=== PATIENT | female | born 1935 | race Caucasian/White ===

== ENCOUNTER 2018-05-04 20:19 | Emergency (ER) | payer MEDICARE, OTHER, SELFPAY ==
[2018-05-04 20:25] VITALS: BP 145/65; PULSE 66; RESP 20; TEMP 36.4; O2SAT 97
--- NOTE | 2018-05-04 20:55 | DI.CT.S_ITS ---
PROCEDURE: CT FACIAL BONES WO CON INDICATIONS: trauma status post fall on aspirin TECHNIQUE: Noncontrast 2.5 mm thick axial images acquired from the mandible through the frontal sinuses, with coronal and sagittal reformatting. For radiation dose reduction, the following was used: automated exposure control, adjustment of mA and/or kV according to patient size. COMPARISON: [facility], CT, CT HEAD/BRAIN WO CON, 05/04/2018, 20:56. FINDINGS: Image quality: Excellent. Bones and teeth: There is a mildly displaced right nasal bone fracture and nondisplaced left nasal bone fracture. Orbital webb are intact. Sinus webb show no fracture or deformity. Visualized portions of the mandible demonstrate no fractures or subluxation. Zygomatic arches are intact. Pterygoid plates are intact. Visualized portions of the skull base and auditory canals are intact. Sinuses: Paranasal sinuses are aerated, without fluid levels, mucosal thickening, or mucoceles. Mastoid air cells are aerated. Soft tissues: No edema, masses, or fluid collections. No enlarged lymph nodes. No soft tissue lacerations or debris. Note is made of bilateral basal ganglia calcifications (please see separate head CT report). Vascular: Visualized vascular structures appear normal in the absence of contrast. Bony vascular foramina and canals are intact. IMPRESSION: 1. Bilateral nasal bone fractures. Dictated by: Tramaine Trujillo M.D. on 05/04/2018 at 21:40 Approved by: Tramaine Trujillo M.D. on 05/04/2018 at 21:43
--- NOTE | 2018-05-04 20:58 | DI.CT.S_ITS ---
PROCEDURE: CT HEAD/BRAIN WO CON INDICATIONS: trauma status post fall TECHNIQUE: Noncontrast 4.5 mm thick angled axial sections acquired from the foramen magnum to the vertex, with coronal and sagittal reformats. For radiation dose reduction, the following was used: automated exposure control, adjustment of mA and/or kV according to patient size. COMPARISON: [facility], CT, CT FACIAL BONES WO CON, 05/04/2018, 20:56. FINDINGS: Image quality: Excellent. CSF spaces: Basal cisterns are patent. No extra-axial fluid collections. The ventricles are symmetric in size and shape. Brain: There are foci of basal ganglia calcifications bilaterally. There is also calcification in the caudates, right greater than left. No intracranial bleeds or masses. There is cerebral volume loss for age, with resultant ventricular and sulcal prominence. There are periventricular and deep white matter chronic small vessel ischemic changes. There is intracranial internal carotid artery atherosclerosis. Skull and face: Calvarium bones appear intact, without suspicious lesions. There is mildly displaced right nasal bone fracture. Sinuses: Visualized sinuses and mastoids are clear. IMPRESSION: 1. No acute intracranial abnormalities. 2. Cerebral volume loss and chronic microvascular ischemic changes. 3. Bilateral basal ganglial and caudate calcifications, most likely dystrophic calcifications. Differential diagnoses include metabolic disorders, carbon monoxide poisoning and hyperparathyroidism. 4. Mildly displaced right nasal bone fracture. Dictated by: Tramaine Trujillo M.D. on 05/04/2018 at 21:35 Approved by: Tramaine Trujillo M.D. on 05/04/2018 at 21:40
[2018-05-04 21:30] VITALS: BP 149/74; PULSE 78; O2SAT 97
[2018-05-04 21:40] LABS: Add Manual Diff / Slide Review NO; Basophils Percent Auto 0.7 % (0-2); Eosinophils Percent Auto 4.5 % (2-4); Hematocrit 36.9 % (36-46); Hemoglobin 12.7 g/dL (12.0-16.0); Lymphocytes Percent Auto 15.2 % (25-40); Mean Corpuscular HGB Conc 34.5 % (30-36); Mean Corpuscular Hemoglobin 32.2 PG (26-34); Mean Corpuscular Volume 93.3 fL (80-100); Monocytes Percent Auto 7.9 % (3-14); Neutrophils Absolute Auto 7100 /uL (3000-5900); Neutrophils Percent Auto 71.7 % (50-75); Platelet Count 208 X10^3/uL (150-400); Red Blood Cell Count 3.95 X10^6/uL (4.0-5.2); Red Cell Distribution Width 14.3 % (11.6-14.8); White Blood Cell Count 9.9 X10^3/uL (4.5-11.0)
--- NOTE | 2018-05-04 21:44 | ED_ITS ---
HPI - Fall General Chief Complaint: Fall Stated Complaint: FACIAL INJURY S/P FALL Time Seen by Provider: 05/04/18 20:30 Source: patient and family Mode of arrival: ambulatory Limitations: no limitations History of Present Illness HPI Narrative: 82-year-old female with history of diabetes, breast cancer and gait disturbance presents with a mechanical fall which she had been bending over and fell forward, striking her face and head on the ground. She denies loss of consciousness nor nausea or vomiting. She admits to nose pain and swelling. She denies any vomiting. She denies any trouble with vision nor any numbness, tingling or weakness complaint: fall Onset (ago): minute(s) Fall from: standing Fall witnessed: yes, by family Place fall occurred: home Loss of consciousness: none Prolonged down time: no Symptoms prior to fall: none Context: tripped/slipped Location of injury: head and face Related Data Previous Rx's Medication Instructions Recorded atorvastatin 40 mg PO HS #90 tab 03/10/17 sertraline [Zoloft] 150 mg PO QDAY #270 tab 05/12/17 Allergies Allergy/AdvReac Type Severity Reaction Status Date / Time erythromycin base Allergy Mild Unverified 05/02/18 15:45 [ERYTHROMYCIN BASE] ciprofloxacin [CIPROFLOXACIN] Allergy Unknown Unverified 05/02/18 15:45 Sulfa (Sulfonamide Allergy Unknown Unverified 05/02/18 15:45 Antibiotics) [SULFA (SULFONAMIDE ANTIBIOTICS)] Review of Systems Review of Systems All systems reviewed & are unremarkable except as noted in HPI and below Constitutional Denies chills, Denies fever(s), Denies lethargy and Denies weakness Eyes Denies change in vision, Denies eye discharge, Denies irritation and Denies loss of vision ENT Ears, Nose, Mouth, and Throat: Denies change in voice, Reports nasal congestion , Reports nasal trauma, Denies neck pain and Denies sore throat Cardiovascular Denies chest pain, Denies irregular heart rhythm, Denies lightheadedness, Denies palpitations, Denies dyspnea, Denies dyspnea on exertion and Denies orthopnea Respiratory Denies cough, Denies dyspnea, Denies dyspnea on exertion and Denies wheezing Gastrointestinal Gastrointestinal: Denies abdominal pain, Denies change in bowel habits, Denies diarrhea, Denies nausea and Denies vomiting Genitourinary Denies hematuria, Denies flank pain, Denies urinary incontinence and Denies urinary urgency Musculoskeletal Denies neck pain Integumentary/Breasts Denies pruritus, Denies erythema, Denies rash and Denies wounds Neurologic Denies confusion, Denies loss of vision and Denies weakness Psychiatric Denies anxiety, Denies confusion, Denies depression, Denies homicidal ideation and Denies suicidal ideation Endocrine Denies palpitations Hematologic/Lymphatic Denies easy bruising Allergic/Immunologic Denies wheezing Exam Narrative Exam Narrative: Pleasant 82-year-old female in mild distress, complaining of nose pain. A and O x3, GCS 15 Initial Vital Signs Initial Vital Signs: Vital Signs Temperature 97.6 F 05/04/18 20:25 Pulse Rate 66 05/04/18 20:25 Respiratory Rate 20 05/04/18 20:25 Blood Pressure 145/65 H 05/04/18 20:25 Pulse Oximetry 97 05/04/18 20:25 Const General: cooperative and well developed Nutritional Appearance: well nourished Orientation: alert, awake, oriented x3 and not confused [facility] Head: normocephalic and atraumatic Ears: external ears normal and TM's normal bilaterally Nose: septum normal, No epistaxis, external nose abnormal (Swelling on the nasal bridge with tenderness, suspicious for nasal fracture) and No nasal discharge Face and sinus: sinuses nontender, face symmetric, no sinus tenderness and No dry mucous membranes Mouth: oral mucosae normal and moist mucous membranes Teeth and gingiva: dentition normal Throat: tonsils normal and uvula midline Eyes General: appearance normal, both eyes and all related structures Eyelids: eyelids normal Conjunctivae: conjunctivae normal Sclera: sclerae normal Pupils: PERRL EOM: EOM intact bilaterally Neck Neck: normal visual inspection, trachea midline, No lymphadenopathy, No midline deformity and No JVD Lymphatic: No lymphedema Chest Chest: normal inspection of the chest Resp Effort & Inspection: normal respiratory effort, able to speak in complete sentences, no respiratory distress and no use of accessory muscles Auscultation: clear to auscultation bilaterally, no rales, no rhonchi and no wheezes Cardio Rate: regular rate Rhythm: regular rhythm Heart Sounds: no click, no gallops, no murmurs and no rubs Pulses: normal peripheral pulses GI Inspection: non-distended Palpation: soft, no hepatosplenomegaly, No guarding, No pulsatile mass and No tender Auscultation: normal bowel sounds Back/Spine/Pelvis Back: No CVA tenderness Cervical Spine: cervical ROM normal and No pain with cervical ROM Thoracic/Lumbar Spine: thoracic and lumbar spine normal to inspection Skin General: no rashes or lesions noted, No jaundice and No petechiae Neuro General: alert, oriented x3, gait normal and no focal motor deficits Speech: speech normal Extrem General: full ROM, no clubbing, cyanosis or edema, no pedal edema and no calf tenderness Psych Appearance: well kempt Mental Status: mental status grossly normal Attitude: cooperative Thought Content: normal and suicidality Judgment: judgment good [facility] Surgical History History of gynecologic surgery (Resolved 1992) Status post breast lumpectomy (Resolved) Status post hysterectomy (Resolved 1986) Family History Father Atherosclerosis Mother No problems noted. Social History Smoking Status: Former smoker Course Orders Ordered: ED Orders 05/04/18 20:55 CT facial bones wo con Stat 05/04/18 20:58 CT head/brain wo con Stat 05/04/18 21:30 Basic Metabolic Panel Stat Complete Blood Count AUTO DIFF Stat 05/05/18 01:32 CT head/brain wo con Stat Vital Signs - 8 hr 05/04/18 21:30 05/05/18 01:42 05/05/18 02:24 Pulse Rate 78 67 80 Respiratory Rate 12 16 Blood Pressure [Left Arm] 139/64 H 131/61 H Blood Pressure [Right Arm] 149/74 H Pulse Oximetry 97 97 98 MDM - Fall Medical Records Attestation: I reviewed the patient's medical records. Lab Data Attestation: I reviewed the patient's lab results. Result diagrams: 05/04/18 21:30 05/04/18 21:30 Lab Results 05/04/18 05/04/18 Range/Units 21:30 21:30 WBC 9.9 (4.5-11.0) X10^3/uL RBC 3.95 L (4.0-5.2) X10^6/uL Hgb 12.7 (12.0-16.0) g/dL Hct 36.9 (36-46) % MCV 93.3 (80-100) fL MCH 32.2 (26-34) PG MCHC 34.5 (30-36) % RDW 14.3 (11.6-14.8) % Plt Count 208 (150-400) X10^3/uL Neut % (Auto) 71.7 (50-75) % Lymph % (Auto) 15.2 L (25-40) % [place] % (Auto) 7.9 (3-14) % Eos % (Auto) 4.5 H (2-4) % Baso % (Auto) 0.7 (0-2) % Neut # (Auto) 7100 H (7623-7601) /uL Sodium 141 (137-145) mmol/L Potassium 4.4 (3.4-5.1) mmol/L Chloride 103 (98-107) mmol/L Carbon Dioxide 24 (22-32) mmol/L BUN 27 H (7-17) mg/dL Creatinine 0.80 (0.52-1.04) mg/dL Estimated GFR > 60.0 (>60) mL/min BUN/Creatinine Ratio 33.8 H (6-22) Glucose 139 H (80-110) mg/dL Calcium 10.1 (8.4-10.2) mg/dL Imaging Data CT scan - head: Radiologist's impression: PROCEDURE: CT HEAD/BRAIN WO CON INDICATIONS: trauma status post fall TECHNIQUE: Noncontrast 4.5 mm thick angled axial sections acquired from the foramen magnum to the vertex, with coronal and sagittal reformats. For radiation dose reduction, the following was used: automated exposure control, adjustment of mA and/or kV according to patient size. COMPARISON: [facility], CT, CT FACIAL BONES WO CON, 05/04/2018, 20:56. FINDINGS: Image quality: Excellent. CSF spaces: Basal cisterns are patent. No extra-axial fluid collections. The ventricles are symmetric in size and shape. Brain: There are foci of basal ganglia calcifications bilaterally. There is also calcification in the caudates, right greater than left. No intracranial bleeds or masses. There is cerebral volume loss for age, with resultant ventricular and sulcal prominence. There are periventricular and deep white matter chronic small vessel ischemic changes. There is intracranial internal carotid artery atherosclerosis. Skull and face: Calvarium bones appear intact, without suspicious lesions. There is mildly displaced right nasal bone fracture. Sinuses: Visualized sinuses and mastoids are clear. IMPRESSION: 1. No acute intracranial abnormalities. 2. Cerebral volume loss and chronic microvascular ischemic changes. 3. Bilateral basal ganglial and caudate calcifications, most likely dystrophic calcifications. Differential diagnoses include metabolic disorders, carbon monoxide poisoning and hyperparathyroidism. 4. Mildly displaced right nasal bone fracture. Dictated by: Tramaine Trujillo M.D. on 05/04/2018 at 21:35 Approved by: Tramaine Trujillo M.D. on 05/04/2018 at 21:[address] No intracranial hemorrhage. No change from prior Discharge Plan Departure Patient Disposition: Home, Self-Care Clinical Impression: Abrasion of face, Closed fracture nasal bone Discharge Date/Time: 05/05/18 03:19 Interventions: ED Discharge Assessment Last Done: 05/05/18 03:18 Instructions: DI for Nose Fracture Activity Restrictions/Additional Instructions: *You have been diagnosed with [ nasal fracture and facial abrasion ] *What to do: * continue to take medications as directed *Follow up with your primary care provider in 2-3 days, call for an appointment. Let them know you were seen in the Emergency Department and that we ask that you be seen in follow up. For ongoing nasal problems beyond 1 week , consider following up with Dr. Guhtrie at [facility] ear nose and throat, his contact info has been include *Return to ER if you should have any new, worsening or concerning symptoms , such as [blurred vision, trouble with speech, numbness, tingling or weakness, other stroke-like symptoms, other bothersome findings ] Prescriptions: No Action atorvastatin 40 MG tablet 40 mg PO HS Qty: 90 RF: 3 sertraline [Zoloft] 50 MG tablet 150 mg PO QDAY Qty: 270 RF: 2 Referrals: Wes Guthrie MD [Physician] - Maximus Mcgarry MD [Primary Care Provider] -
[2018-05-04 21:49] LABS: BUN Creatinine Ratio 33.8 (6-22); Blood Urea Nitrogen 27 mg/dL (7-17); Calcium 10.1 mg/dL (8.4-10.2); Carbon Dioxide 24 mmol/L (22-32); Chloride 103 mmol/L (98-107); Estimated Glomerular Filt Rate > 60.0 mL/min (>60); Glucose 139 mg/dL (80-110); HEMOLYSIS 21 (0-50); Potassium 4.4 mmol/L (3.4-5.1); Sodium 141 mmol/L (137-145)
--- NOTE | 2018-05-05 01:32 | DI.CT.S_ITS ---
PROCEDURE: CT HEAD/BRAIN WO CON INDICATIONS: head injury, aspirin, trending findings TECHNIQUE: Noncontrast 4.5 mm thick angled axial sections acquired from the foramen magnum to the vertex, with coronal and sagittal reformats. For radiation dose reduction, the following was used: automated exposure control, adjustment of mA and/or kV according to patient size. COMPARISON: [facility], CT, CT HEAD/BRAIN WO CON, 05/04/2018, 20:56. FINDINGS: Image quality: Excellent. CSF spaces: Basal cisterns are patent. No extra-axial fluid collections. The ventricles are symmetric in size and shape. Brain: No intracranial bleeds or masses. Prominent bilateral basal ganglia calcifications There is cerebral volume loss for age, with resultant ventricular and sulcal prominence. There are periventricular and deep white matter chronic small vessel ischemic changes. There is intracranial internal carotid artery atherosclerosis. Skull and face: Calvarium and visualized facial bones appear intact, without suspicious lesions. Sinuses: Visualized sinuses and mastoids are clear. IMPRESSION: No acute intracranial abnormality. No interval change. Dictated by: Darren Bird M.D. on 05/05/2018 at 7:55 Approved by: Darren Bird M.D. on 05/05/2018 at 7:59
[2018-05-05 01:42] VITALS: BP 139/64; PULSE 67; RESP 12; O2SAT 97
--- NOTE | 2018-05-05 01:50 | PC.NURSE ---
repeat head ct
[2018-05-05 02:24] VITALS: BP 131/61; PULSE 80; RESP 16; O2SAT 98
== END 2018-05-05 03:19 | disposition home or self-care (01) ==
PROVIDERS: Emergency Provider Emergency Medicine; Family Provider Internal Medicine; PCP Internal Medicine
DX: S02.2XXA Fracture of nasal bones, initial encounter for closed fracture (principal); S00.81XA Abrasion of other part of head, initial encounter; W18.30XA Fall on same level, unspecified, initial encounter
CPT/HCPCS: 36591; 70450; 70486; 80048; 85025; 99283; 99284

== ENCOUNTER → 2018-06-08 09:02 | Outpatient (CLI) | payer MEDICARE, OTHER, SELFPAY ==
[2018-06-08 10:25] LABS: Add Manual Diff / Slide Review NO; Alanine Aminotransferase 31 IU/L (9-52); Albumin 4.6 g/dL (3.5-5.0); Albumin Globulin Ratio 1.5 (1.0-2.8); Alkaline Phosphatase 59 U/L (38-126); Aspartate Aminotransferase 26 IU/L (14-36); BUN Creatinine Ratio 28.3 (6-22); Basophils Percent Auto 0.8 % (0-2); Bilirubin Total 0.4 mg/dL (0.2-1.3); Blood Urea Nitrogen 17 mg/dL (7-17); Calcium 9.3 mg/dL (8.4-10.2); Carbon Dioxide 29 mmol/L (22-32); Chloride 103 mmol/L (98-107); Cholesterol 310 mg/dL (140-199); Eosinophils Percent Auto 6.6 % (2-4); Estimated Glomerular Filt Rate > 60.0 mL/min (>60); Globulin 3.1 g/dL (1.7-4.1); Glucose 186 mg/dL (80-110); HDL Cholesterol 45 mg/dL (40-60); HEMOLYSIS 18 (0-50); Hemoglobin 13.1 g/dL (12.0-16.0); LDL Cholesterol Calculated 216 mg/dL (<100); Lymphocytes Percent Auto 24.6 % (25-40); Mean Corpuscular HGB Conc 34.5 % (30-36); Mean Corpuscular Volume 92.8 fL (80-100); Monocytes Percent Auto 8.9 % (3-14); Neutrophils Absolute Auto 4200 /uL (3000-5900); Neutrophils Percent Auto 59.1 % (50-75); Platelet Count 193 X10^3/uL (150-400); Potassium 4.2 mmol/L (3.4-5.1); Red Cell Distribution Width 14.3 % (11.6-14.8); Sodium 141 mmol/L (137-145); Total Protein 7.7 g/dL (6.3-8.2); Triglycerides 246 mg/dL (35-150); White Blood Cell Count 7.1 X10^3/uL (4.5-11.0)
[2018-06-08 11:26] LABS: Creatinine Urine Random 80.3 mg/dL
[2018-06-08 11:31] LABS: Microalbumi Creatinin Ratio Ur 12.4 ug/mg CR (<30)
[2018-06-08 16:00] LABS: Thyroid Stimulating Hormone 4.46 uIU/mL (0.47-4.68)
== END ==
PROVIDERS: PCP Internal Medicine; Visit Provider Internal Medicine
DX: E11.9 Type 2 diabetes mellitus without complications (principal); E78.5 Hyperlipidemia, unspecified; R53.81 Other malaise; R53.83 Other fatigue
CPT/HCPCS: 36415; 80053; 80061; 82043; 82570; 83036; 84439; 84443; 85025

== ENCOUNTER 2019-03-08 20:18 | Emergency (ER) | payer MEDICARE, OTHER, SELFPAY ==
[2019-03-08 20:25] VITALS: BP 153/66; PULSE 61; RESP 16; TEMP 36; O2SAT 98
--- NOTE | 2019-03-08 20:43 | ED_ITS ---
HPI - Chest Pain General Chief Complaint: Chest Pain Stated Complaint: RIB PAIN, VOMITING Time Seen by Provider: 03/08/19 20:42 Source: patient Mode of arrival: ambulatory Limitations: no limitations History of Present Illness HPI narrative: The patient complains of right chest wall pain. This morning she dropped a vitamin, she bent over to pickler helper the vitamin. She tells me she had to stretch a long wait grabbed the vitamin. She injured her right chest. She has pain in the right lower, lateral chest wall. She has pain with inspiration. She took a Vicodin, she now has nausea and vomiting. She has no left chest pain. She has pain with inspiration, but not to dyspnea. There was no fall or blunt trauma. She has no hemoptysis. Related Data Home Medications Medication Instructions Recorded Confirmed celecoxib 200 mg capsule 200 mg PO DAILY 05/09/18 03/01/19 metformin 850 mg tablet 850 mg PO BID 05/09/18 03/01/19 Resmed Airsense 10 CPAP #1 ea 03/01/19 03/01/19 Previous Rx's Medication Instructions Recorded sertraline [Zoloft] 150 mg PO QDAY #270 tab 08/15/18 atorvastatin 40 mg tablet 40 mg PO HS #90 tab 11/14/18 tramadol 50 mg PO Q6H PRN #20 tab 03/08/19 Allergies Allergy/AdvReac Type Severity Reaction Status Date / Time erythromycin base Allergy Mild Verified 08/01/18 15:20 [ERYTHROMYCIN BASE] ciprofloxacin [CIPROFLOXACIN] Allergy Unknown Verified 08/01/18 15:20 Sulfa (Sulfonamide Allergy Unknown Verified 08/01/18 15:20 Antibiotics) [SULFA (SULFONAMIDE ANTIBIOTICS)] Review of Systems Review of Systems ROS Unobtainable: All systems reviewed & are unremarkable except as noted in HPI and below ENT Ears, Nose, Mouth, and Throat: Denies epistaxis, Denies neck pain and Denies sore throat Cardiovascular Reports chest pain (Right costal margin pain), Denies irregular heart rhythm, Denies lightheadedness, Denies palpitations, Denies dyspnea, Denies dyspnea on exertion and Denies orthopnea Respiratory Denies cough, Denies dyspnea, Denies dyspnea on exertion and Denies wheezing Gastrointestinal Gastrointestinal: Reports abdominal pain (Right rib margin), Denies change in bowel habits, Denies diarrhea, Denies nausea and Denies vomiting Musculoskeletal Denies back pain, Denies neck pain and Reports other (No extremity pain or swelling) Integumentary/Breasts Denies pruritus, Denies erythema, Denies rash and Denies wounds Endocrine Denies palpitations Allergic/Immunologic Denies wheezing [facility] Medical History Obstructive sleep apnea of adult (Chronic) Controlled type 2 diabetes mellitus without complication (Chronic 2012) Hyperlipidemia (Chronic 06/04/14) History of kidney stones (Inactive) Depression (Chronic 2004) Scoliosis (Chronic 193) Osteoporosis (Chronic) Malignant neoplasm of breast (Resolved 2010) History of fracture of humerus (Inactive 03/11/17) Abnormal gait (Chronic 03/11/17) Impairment of balance (Chronic 03/11/17) Ankle pain (Resolved 2011) Fractures (Resolved 2004) Kidney stones (Resolved 1994) Urinary incontinence (Inactive 2011) Surgical History History of gynecologic surgery (Resolved 1992) Status post breast lumpectomy (Resolved) Status post hysterectomy (Resolved 1986) Family History Father Atherosclerosis Mother No problems noted. Social History (Updated 03/05/19 @ 14:47 by KATERIN Mendez) marital status: details: loi Schaeffer household members: spouse lives independently: Yes caregiver/support person: No housing: house Smoking Status: Former smoker alcohol intake: current substance use type: does not use Family History Father Atherosclerosis Mother No problems noted. Social History marital status: details: loi Schaeffer household members: spouse lives independently: Yes caregiver/support person: No housing: house Smoking Status: Former smoker alcohol intake: current substance use type: does not use Exam Initial Vital Signs Initial Vital Signs: Vital Signs Temperature 96.8 F L 03/08/19 20:25 Pulse Rate 61 03/08/19 20:25 Respiratory Rate 16 03/08/19 20:25 Blood Pressure 153/66 H 03/08/19 20:25 Pulse Oximetry 98 03/08/19 20:25 Const General: cooperative and well developed Nutritional Appearance: well nourished Orientation: alert, awake and oriented x3 [facility] Head: normocephalic and atraumatic Nose: external nose normal Face and sinus: face symmetric Mouth: moist mucous membranes Throat: tonsils normal and uvula midline Eyes General: appearance normal, both eyes and all related structures Eyelids: eyelids normal Conjunctivae: conjunctivae normal Sclera: sclerae normal Pupils: PERRL EOM: EOM intact bilaterally Neck Neck: normal visual inspection, trachea midline, No lymphadenopathy, No midline deformity and No JVD Chest Other: Tenderness in the right costal margin. No crepitus, no palpable defects. Resp Effort & Inspection: normal respiratory effort, able to speak in complete sentences, no respiratory distress and no use of accessory muscles Auscultation: clear to auscultation bilaterally, no rales, no rhonchi and no wheezes Cardio Rate: regular rate Rhythm: regular rhythm Heart Sounds: S1 normal, S2 normal, no click, no gallops, no murmurs and no rubs Pulses: normal peripheral pulses GI Palpation: No guarding, No hepatomegaly and tender (Along the right rib margin. No guarding.) Back/Spine/Pelvis Back: No back tenderness and No crepitance Skin General: no rashes or lesions noted and No petechiae Neuro General: alert, oriented x3, gait normal and no focal motor deficits Speech: speech normal Extrem General: full ROM, no pedal edema and no calf tenderness Psych Appearance: well kempt Mental Status: mental status grossly normal Attitude: cooperative Thought Content: normal and suicidality Judgment: judgment good Course Course Narrative: Exam is consistent with a right chest wall strain. She is particularly tender along the right costal margin. Chest x-ray and rib x-rays are normal. She has done well with the Dilaudid injection, feeling much better. She will be discharged on tramadol. Orders Ordered: ED Orders 03/08/19 20:55 XR ribs RT min 3V w CXR1V Stat Discontinued Medications Hydromorphone HCl (Dilaudid) 1 mg IM NOW ONE Stop: 03/08/19 20:56 Last Admin: 03/08/19 21:09 Dose: 1 mg Ondansetron HCl (Zofran Odt) 4 mg SL NOW ONE Stop: 03/08/19 20:56 Last Admin: 03/08/19 21:09 Dose: 4 mg Tramadol HCl (Ultram 50mg Prepack) 1 bottle MISC SEEINSTR ONE Stop: 03/08/19 22:45 Last Admin: 03/08/19 22:54 Dose: 1 bottle Vital Signs - 8 hr 03/08/19 20:25 Temperature 96.8 F L Pulse Rate 61 Respiratory Rate 16 Blood Pressure 153/66 H Pulse Oximetry 98 MDM - Chest Pain Imaging Data Right rib/CXR:: Radiologist's impression: [address] [address] XRay Report Signed Patient: Munira Farris EMR#: [id number] : 6Acct:[id number] Age/Sex: 83 / FDate of Service: 03/08/19 Loc: ED Accession Number: [id number] Procedure: XR ribs RT min 3V w CXR1V Ordering Provider: Murphy Arroyo MD PROCEDURE: XR RIBS RT MIN 3V W CXR 1V INDICATIONS: Injury earlier today. Right rib pain TECHNIQUE: 2 views of the right ribs were acquired, along with a single view chest. COMPARISON: [facility], , CHEST 2 VIEW, 03/12/2016, 9:48. FINDINGS: Surgical changes and devices: There are small surgical clips in the chest wall bilaterally. Postsurgical changes are also partially visualized within the proximal left humerus. Bones and chest wall: No displaced rib fracture identified. No suspicious bony lesions. Overlying soft tissues appear unremarkable. Lungs and pleura: No pleural effusions or pneumothorax. Lungs appear clear. Mediastinum: Mediastinal contours appear normal. Heart size is normal. IMPRESSION: 1. No displaced rib fracture identified. Dictated by: Jeff Bah M.D. on 03/08/2019 at 21:46 Approved by: Jeff Bah M.D. on 03/08/2019 at 21:48 Discharge Plan Departure Patient Disposition: Home Clinical Impression: Strain of chest wall Qualifiers: Encounter type: initial encounter Qualified Code(s): S29.011A - Strain of muscle and tendon of front wall of thorax, initial encounter Instructions: DI for Muscle Strain Activity Restrictions/Additional Instructions: Tylenol 2 tabs every 4 hours as needed for pain. Tramadol 1 tab every 6 hours as needed for added pain control. Follow-up with her doctor in 2 weeks if you are not improving. Return to the ER if necessary. Prescriptions: New tramadol 50 mg tablet 50 mg PO Q6H PRN (Reason: pain) Qty: 20 RF: 0 No Action sertraline [Zoloft] 50 mg tablet 150 mg PO QDAY Qty: 270 RF: 3 atorvastatin 40 mg tablet 40 mg PO HS Qty: 90 RF: 1 celecoxib [Celebrex] 200 mg capsule 200 mg PO DAILY RF: 0 metformin 850 mg tablet 850 mg PO BID RF: 0 Resmed Airsense 10 CPAP Qty: 1 RF: 0 Referrals: Maximus Mcgarry MD [Primary Care Provider] -
--- NOTE | 2019-03-08 20:55 | DI.RAD.S_ITS ---
PROCEDURE: XR RIBS RT MIN 3V W CXR 1V INDICATIONS: Injury earlier today. Right rib pain TECHNIQUE: 2 views of the right ribs were acquired, along with a single view chest. COMPARISON: [facility], , CHEST 2 VIEW, 03/12/2016, 9:48. FINDINGS: Surgical changes and devices: There are small surgical clips in the chest wall bilaterally. Postsurgical changes are also partially visualized within the proximal left humerus. Bones and chest wall: No displaced rib fracture identified. No suspicious bony lesions. Overlying soft tissues appear unremarkable. Lungs and pleura: No pleural effusions or pneumothorax. Lungs appear clear. Mediastinum: Mediastinal contours appear normal. Heart size is normal. IMPRESSION: 1. No displaced rib fracture identified. Dictated by: Jeff Bah M.D. on 03/08/2019 at 21:46 Approved by: Jeff Bah M.D. on 03/08/2019 at 21:48
[2019-03-08] MEDS: ONDANSETRON 4 MG ODT SL (21:09)
[2019-03-08] MEDS: HYDROMORPHONE 1 MG INJ IM (21:09)
[2019-03-08] MEDS: TRAMADOL 50 MG PREPACK 1 BOTTLE MISC (22:54)
[2019-03-08 23:04] VITALS: BP 102/73; PULSE 82; RESP 16; TEMP 36.5; O2SAT 95
--- NOTE | 2019-03-08 23:05 | ED.CHESTPAIN ---
HPI - Chest Pain General Chief Complaint: Chest Pain Stated Complaint: RIB PAIN, VOMITING Time Seen by Provider: 03/08/19 20:42 Source: patient Mode of arrival: ambulatory Limitations: no limitations Related Data Home Medications Medication Instructions Recorded Confirmed celecoxib 200 mg capsule 200 mg PO DAILY 05/09/18 03/01/19 metformin 850 mg tablet 850 mg PO BID 05/09/18 03/01/19 Resmed Airsense 10 CPAP #1 ea 03/01/19 03/01/19 Previous Rx's Medication Instructions Recorded sertraline [Zoloft] 150 mg PO QDAY #270 tab 08/15/18 atorvastatin 40 mg tablet 40 mg PO HS #90 tab 11/14/18 tramadol 50 mg PO Q6H PRN #20 tab 03/08/19 Allergies Allergy/AdvReac Type Severity Reaction Status Date / Time erythromycin base Allergy Mild Verified 08/01/18 15:20 [ERYTHROMYCIN BASE] ciprofloxacin [CIPROFLOXACIN] Allergy Unknown Verified 08/01/18 15:20 Sulfa (Sulfonamide Allergy Unknown Verified 08/01/18 15:20 Antibiotics) [SULFA (SULFONAMIDE ANTIBIOTICS)] [facility] Medical History Obstructive sleep apnea of adult (Chronic) Controlled type 2 diabetes mellitus without complication (Chronic 2012) Hyperlipidemia (Chronic 06/04/14) History of kidney stones (Inactive) Depression (Chronic 2004) Scoliosis (Chronic 193) Osteoporosis (Chronic) Malignant neoplasm of breast (Resolved 2010) History of fracture of humerus (Inactive 03/11/17) Abnormal gait (Chronic 03/11/17) Impairment of balance (Chronic 03/11/17) Ankle pain (Resolved 2011) Fractures (Resolved 2004) Kidney stones (Resolved 1994) Urinary incontinence (Inactive 2011) Surgical History History of gynecologic surgery (Resolved 1992) Status post breast lumpectomy (Resolved) Status post hysterectomy (Resolved 1986) Family History Father Atherosclerosis Mother No problems noted. Social History (Updated 03/05/19 @ 14:47 by KATERIN Mendez) marital status: details: loi Schaeffer household members: spouse lives independently: Yes caregiver/support person: No housing: house Smoking Status: Former smoker alcohol intake: current substance use type: does not use Family History Father Atherosclerosis Mother No problems noted. Social History marital status: details: loi Schaeffer household members: spouse lives independently: Yes caregiver/support person: No housing: house Smoking Status: Former smoker alcohol intake: current substance use type: does not use Exam Initial Vital Signs Initial Vital Signs: Vital Signs Temperature 96.8 F L 03/08/19 20:25 Pulse Rate 61 03/08/19 20:25 Respiratory Rate 16 03/08/19 20:25 Blood Pressure 153/66 H 03/08/19 20:25 Pulse Oximetry 98 03/08/19 20:25 Course Orders Ordered: ED Orders 03/08/19 20:55 XR ribs RT min 3V w CXR1V Stat Discontinued Medications Hydromorphone HCl (Dilaudid) 1 mg IM NOW ONE Stop: 03/08/19 20:56 Last Admin: 03/08/19 21:09 Dose: 1 mg Ondansetron HCl (Zofran Odt) 4 mg SL NOW ONE Stop: 03/08/19 20:56 Last Admin: 03/08/19 21:09 Dose: 4 mg Tramadol HCl (Ultram 50mg Prepack) 1 bottle MISC SEEINSTR ONE Stop: 03/08/19 22:45 Last Admin: 03/08/19 22:54 Dose: 1 bottle Vital Signs - 8 hr 03/08/19 20:25 Temperature 96.8 F L Pulse Rate 61 Respiratory Rate 16 Blood Pressure 153/66 H Pulse Oximetry 98 Discharge Plan Departure Patient Disposition: Home Clinical Impression: Strain of chest wall Instructions: DI for Muscle Strain Activity Restrictions/Additional Instructions: Tylenol 2 tabs every 4 hours as needed for pain. Tramadol 1 tab every 6 hours as needed for added pain control. Follow-up with her doctor in 2 weeks if you are not improving. Return to the ER if necessary. Prescriptions: New tramadol 50 mg tablet 50 mg PO Q6H PRN (Reason: pain) Qty: 20 RF: 0 No Action sertraline [Zoloft] 50 mg tablet 150 mg PO QDAY Qty: 270 RF: 3 atorvastatin 40 mg tablet 40 mg PO HS Qty: 90 RF: 1 celecoxib [Celebrex] 200 mg capsule 200 mg PO DAILY RF: 0 metformin 850 mg tablet 850 mg PO BID RF: 0 Resmed Airsense 10 CPAP Qty: 1 RF: 0 Referrals: Maximus Mcgarry MD [Primary Care Provider] -
== END 2019-03-08 23:12 | disposition home or self-care (01) ==
PROVIDERS: Emergency Provider Emergency Medicine; Family Provider Internal Medicine; PCP Internal Medicine
DX: S29.011A Strain of muscle and tendon of front wall of thorax, initial encounter (principal)
CPT/HCPCS: 71101; 96372; 99282; 99283; J1170

== ENCOUNTER → 2019-05-18 10:16 | Outpatient (CLI) | payer MEDICARE, OTHER, SELFPAY ==
[2019-05-18 11:17] LABS: BUN Creatinine Ratio 36.7 (6-22); Blood Urea Nitrogen 22 mg/dL (7-17); Calcium 9.8 mg/dL (8.4-10.2); Carbon Dioxide 27 mmol/L (22-32); Chloride 104 mmol/L (98-107); Estimated Glomerular Filt Rate > 60.0 mL/min (>60); Glucose 177 mg/dL (80-110); HEMOLYSIS < 15 (0-50); Potassium 4.8 mmol/L (3.4-5.1); Sodium 141 mmol/L (137-145)
[2019-05-18 14:20] LABS: Hemoglobin A1C% w Est Avg Glu 7.1 % (4.0-6.0)
== END ==
PROVIDERS: Family Provider Internal Medicine; PCP Internal Medicine; Visit Provider Internal Medicine
DX: E11.65 Type 2 diabetes mellitus with hyperglycemia (principal)
CPT/HCPCS: 36415; 80048; 83036

== ENCOUNTER → 2019-05-24 11:01 | Outpatient (CLI) | payer MEDICARE, OTHER, SELFPAY ==
--- NOTE | 2019-05-24 11:02 | DI.US.S_ITS ---
PROCEDURE: US PERIPH VENOUS LOW EXTREM BI INDICATIONS: EDEMA TECHNIQUE: Real-time imaging, as well as color and pulse Doppler interrogation, were performed of the deep veins of both legs from the inguinal ligament to the popliteal fossa. COMPARISON: None. FINDINGS: Right: The common femoral, femoral and popliteal veins are normally compressible, and free of intraluminal thrombus. Color and pulse Doppler demonstrate normal phasic intravascular flow. There is normal augmentation response to distal compression maneuver. Left: The common femoral, femoral and popliteal veins are normally compressible, and free of intraluminal thrombus. Color and pulse Doppler demonstrate normal phasic intravascular flow. There is normal augmentation response to distal compression maneuver. IMPRESSION: Negative for deep venous thrombosis. Dictated by: Олег Deshpande M.D. on 05/24/2019 at 11:01 Approved by: Олег Deshpande M.D. on 05/24/2019 at 11:02
== END ==
PROVIDERS: Family Provider Internal Medicine; PCP Internal Medicine; Visit Provider Nurse Practitioner
DX: R60.0 Localized edema (principal)
CPT/HCPCS: 93970

== ENCOUNTER → 2019-05-28 13:04 | Outpatient (CLI) | payer MEDICARE, OTHER, SELFPAY | PROVIDERS: Family Provider Internal Medicine; PCP Internal Medicine; Visit Provider Podiatrist Primary Podiatric Medicine | DX: I87.312 Chronic venous hypertension (idiopathic) with ulcer of left lower extremity (principal); L97.321 Non-pressure chronic ulcer of left ankle limited to breakdown of skin; R60.0 Localized edema | CPT/HCPCS: 29580; 99203; 99213 ==

== ENCOUNTER → 2019-05-30 15:49 | Outpatient (CLI) | payer MEDICARE, OTHER, SELFPAY | PROVIDERS: Family Provider Internal Medicine; PCP Internal Medicine; Visit Provider Family Medicine | DX: R60.0 Localized edema (principal) | CPT/HCPCS: 29581 ==

== ENCOUNTER → 2019-06-04 14:18 | Outpatient (CLI) | payer MEDICARE, OTHER, SELFPAY | PROVIDERS: Family Provider Internal Medicine; PCP Internal Medicine; Visit Provider Podiatrist Primary Podiatric Medicine | DX: Z48.817 Encounter for surgical aftercare following surgery on the skin and subcutaneous tissue (principal) | CPT/HCPCS: 99212; 99213 ==

== ENCOUNTER → 2019-06-12 17:33 | Outpatient (CLI) | payer MEDICARE, OTHER, SELFPAY ==
[2019-06-12 18:08] LABS: Appearance Urine UA CLOUDY; Bilirubin Urine UA NEGATIVE (NEGATIVE); Color Urine UA YELLOW; Glucose Urine UA NEGATIVE (Negative); Ketones Urine UA NEGATIVE (NEGATIVE); Leukocyte Esterase Urine UA 2+ (NEGATIVE); Nitrite Urine UA POSITIVE (Negative); Occult Blood Urine UA 1+ (Negative); Protein Urine UA 1+ (Negative); Urobilinogen Urine UA 0.2 E.U./dL (0.2)
[2019-06-12 18:22] LABS: RBC Urine 1-5/HPF (0-5/HPF); Squamous Epithelial Cell Urine 0-1 /HPF (0-5/HPF); WBC Urine >100/HPF (0-5/HPF)
[2019-06-12 18:23] LABS: Amorphous Sediment Urine 1+; Bacteria Urine Many (>30); Culture Indicated Urine Specimen Cultured; Mucus Urine 2+ (Negative)
== END ==
PROVIDERS: PCP Internal Medicine; Visit Provider Internal Medicine
DX: R39.9 Unspecified symptoms and signs involving the genitourinary system (principal)
CPT/HCPCS: 81001; 87077; 87086; 87186

== ENCOUNTER → 2019-07-02 09:17 | Outpatient (CLI) | payer MEDICARE, OTHER, SELFPAY | PROVIDERS: PCP Internal Medicine; Visit Provider Podiatrist Primary Podiatric Medicine | DX: I87.312 Chronic venous hypertension (idiopathic) with ulcer of left lower extremity (principal); I87.393 Chronic venous hypertension (idiopathic) with other complications of bilateral lower extremity | CPT/HCPCS: 99213 ==

== ENCOUNTER → 2019-07-20 12:04 | Outpatient (CLI) | payer MEDICARE, OTHER, SELFPAY ==
[2019-07-20 13:01] LABS: BUN Creatinine Ratio 28.3 (6-22); Blood Urea Nitrogen 17 mg/dL (7-17); Calcium 9.8 mg/dL (8.4-10.2); Carbon Dioxide 27 mmol/L (22-32); Chloride 101 mmol/L (98-107); Estimated Glomerular Filt Rate > 60.0 mL/min (>60); Glucose 165 mg/dL (80-110); HEMOLYSIS < 15 (0-50); Potassium 4.1 mmol/L (3.4-5.1); Sodium 139 mmol/L (137-145)
== END ==
PROVIDERS: PCP Internal Medicine; Visit Provider Internal Medicine
DX: I87.2 Venous insufficiency (chronic) (peripheral) (principal); R60.0 Localized edema
CPT/HCPCS: 36415; 80048; 83735

== ENCOUNTER → 2019-08-06 17:31 | Outpatient (CLI) | payer MEDICARE, OTHER, SELFPAY ==
[2019-08-06 18:01] LABS: Appearance Urine UA CLOUDY; Bilirubin Urine UA NEGATIVE (NEGATIVE); Color Urine UA YELLOW; Glucose Urine UA 1+ g/dL (Negative); Ketones Urine UA NEGATIVE (NEGATIVE); Leukocyte Esterase Urine UA 2+ (NEGATIVE); Nitrite Urine UA NEGATIVE (Negative); Occult Blood Urine UA TRACE-LYSED (Negative); Protein Urine UA NEGATIVE (Negative); Urobilinogen Urine UA 0.2 E.U./dL (0.2)
[2019-08-06 18:41] LABS: pH Urine UA 5.5 (4.5-8.0)
[2019-08-06 18:42] LABS: Bacteria Urine Few (2-10); Culture Indicated Urine Specimen Cultured; RBC Urine 1-5/HPF (0-5/HPF); Squamous Epithelial Cell Urine 0-1 /HPF (0-5/HPF); WBC Urine 30-100/HPF (0-5/HPF)
== END ==
PROVIDERS: PCP Internal Medicine; Visit Provider Internal Medicine
DX: R39.89 Other symptoms and signs involving the genitourinary system (principal)
CPT/HCPCS: 81001; 87086

== ENCOUNTER 2022-07-22 13:49 | Emergency (ER) | payer MEDICARE, OTHER, SELFPAY ==
[2022-07-22 14:11] VITALS: BP 143/65; PULSE 88; RESP 20; TEMP 37.7; O2SAT 95
--- NOTE | 2022-07-22 14:26 | DI.RAD.S_ITS ---
PROCEDURE: XR CHEST 1V INDICATIONS: cough TECHNIQUE: One view of the chest was acquired. COMPARISON: [facility], , CHEST 2 VIEW, 03/12/2016, 9:48. FINDINGS: Surgical changes and devices: Bilateral axillary clips Lungs and pleura: Lungs are clear. No pleural effusions or pneumothorax. Mediastinum: Mediastinal contours appear normal. Heart size is normal. Bones and chest wall: No suspicious bony lesions. Overlying soft tissues appear unremarkable. IMPRESSION: No evidence acute pulmonary process. Dictated by: Gregor Mccain M.D. on 07/22/2022 at 14:58 Approved by: Gregor Mccain M.D. on 07/22/2022 at 15:02
--- NOTE | 2022-07-22 14:34 | ED_ITS ---
HPI - URI/Sore Throat General Chief Complaint: Upper Respiratory Symptoms Stated Complaint: Voice out, pain when swallowing Time Seen by Provider: 07/22/22 14:25 Source: patient Mode of arrival: Family Vehicle History of Present Illness HPI Narrative: Patient here for fever, sore throat, hoarse voice, pain with swallowing. Has had a cough. No known sick contacts. Patient has COVID vaccination. No vomiting diarrhea. Patient states feels dehydrated because unable to eat and drink very much. Patient in no distress. Patient here with family. Denies any chest pain or dyspnea. Rapid throat swab was negative. Patient able to speak full sentences. Does have hoarse voice. Not requiring to the lean forward to speak or breathe Related Data Home Medications Medication Instructions Recorded Confirmed metformin 850 mg tablet 850 mg PO BID 05/09/18 07/26/19 Resmed Airsense 10 CPAP #1 ea 03/01/19 07/26/19 celecoxib 200 mg capsule (Celebrex) 200 mg PO DAILY PRN 03/23/19 07/26/19 omeprazole 40 mg capsule,delayed 40 mg PO DAILY PRN 04/16/19 07/26/19 release mirabegron 50 mg tablet,extended 50 mg PO DAILY 06/21/19 07/26/19 release 24 hr (Myrbetriq) Previous Rx's Medication Instructions Recorded nitrofurantoin macrocrystal 100 mg 100 mg PO BID #14 caps 06/13/19 capsule doxycycline hyclate 100 mg capsule 100 mg PO BID #20 caps 06/21/19 tramadol 50 mg tablet 50 mg PO Q8H PRN pain #20 tabs 07/09/19 furosemide 20 mg tablet 40 mg PO DAILY #180 tabs 08/07/19 potassium chloride 10 mEq 10 meq PO DAILY #90 tabs 06/19/20 tablet,extended release(part/cryst) sertraline 50 mg tablet (Zoloft) 150 mg PO QDAY #270 tabs 09/22/20 atorvastatin 40 mg tablet 40 mg PO BEDTIME #30 tabs 02/13/21 Allergies Allergy/AdvReac Type Severity Reaction Status Date / Time erythromycin base Allergy Mild Verified 07/22/22 14:15 [ERYTHROMYCIN BASE] ciprofloxacin [CIPROFLOXACIN] Allergy Unknown Verified 07/22/22 14:15 Sulfa (Sulfonamide Allergy Unknown Verified 07/22/22 14:15 Antibiotics) [SULFA (SULFONAMIDE ANTIBIOTICS)] Review of Systems Review of Systems Narrative: GENERAL: Denies chills, fatigue, malaise, positive fever, negative sweats. HEENT: Denies sinus pain, ear pain, positive sore throat RESPIRATORY: Denies dyspnea, positive cough CARDIOVASCULAR: Denies chest pain, palpitations GASTROINTESTINAL: Denies nausea, vomiting, abdominal pain : Denies dysuria, frequency, hematuria MUSCULOSKELETAL: denies muscle or bony pain SKIN: Denies rash, skin lesions NEUROLOGIC: Denies weakness, numbness ROS Unobtainable: All systems reviewed & are unremarkable except as noted in HPI and below Patient History Medical History (Updated 07/22/22 @ 16:33 by Nilesh Barrett MD) Abnormal gait (03/11/17) Ankle pain (2011) Controlled type 2 diabetes mellitus without complication (2012) Depression (2004) Fractures (2004) History of fracture of humerus (03/11/17) History of kidney stones Hyperlipidemia (06/04/14) Idiopathic hypersomnia Impairment of balance (03/11/17) Kidney stones (1994) Malignant neoplasm of breast (2010) Obstructive sleep apnea of adult Osteoporosis Scoliosis (193) Urinary incontinence (2011) Surgical History History of gynecologic surgery (1992) Status post breast lumpectomy Status post hysterectomy (1986) Family History Father Atherosclerosis Mother No problems noted. Social History marital status: details: to [place] household members: spouse lives independently: Yes caregiver/support person: No housing: house Smoking Status: Former smoker alcohol intake: current substance use type: does not use Smoking Status: Former smoker alcohol intake frequency: 0-2 drinks per day Alcohol type: wine Substance Use Type: does not use Exam Narrative Exam Narrative: GENERAL: in no distress, not toxic not dyspneic HEAD: Normocephalic. EYES: Pupils equal round No scleral icterus. ENT: Mucous membranes moist. Mild bilateral pharyngeal erythema but no exudates no edema no midline shift NECK: Trachea midline. No submandibular tenderness. CARDIOVASCULAR: Regular rate and rhythm without murmurs RESPIRATORY: Clear to auscultation. Breath sounds equal bilaterally. No wheezes, rales, or rhonchi. GASTROINTESTINAL: Abdomen soft, non-tender EXTREMITIES: No gross deformities. BACK: No flank tenderness. NEURO: AOx4. Using her walker to walk across the emergency department from triage to her room, stable. SKIN: Warm and dry PSYCH: Not anxious, is cooperative Initial Vital Signs Initial Vital Signs: Vital Signs Temperature 100 F H 07/22/22 14:11 Pulse Rate 88 07/22/22 14:11 Respiratory Rate 20 07/22/22 14:11 Blood Pressure 143/65 H 07/22/22 14:11 Pulse Oximetry 95 07/22/22 14:11 Oxygen Delivery Method 07/22/22 14:11 Course Course Course Narrative: No new issues during course of stay Orders Ordered: Discontinued Medications Acetaminophen (Acetaminophen 325 Mg Tablet) 650 mg PO NOW ONE Stop: 07/22/22 16:33 Last Admin: 07/22/22 16:38 Dose: 650 mg Documented By: AT Sodium Chloride (Normal Saline 0.9%) 1,000 mls @ 1,000 mls/hr IV BOLUS ONE Stop: 07/22/22 15:24 Last Infusion: 07/22/22 15:49 Dose: 0 mls/hr Documented By: Admin: 07/22/22 14:41 Dose: 1,000 mls/hr Documented By: JARAD Reevaluation(s) Reevaluation #1: Reviewed results with patient and and close friend. Patient not requiring oxygen. Appropriate for discharge home. Supportive care. Patient feels better after IV fluids. Return precautions reviewed with them. They desire discharge home. Time: 16:32 Vital Signs Vital signs: Vital Signs - 8 hr 07/22/22 14:11 07/22/22 15:30 07/22/22 15:49 Temperature 100 F H Pulse Rate 88 87 80 Respiratory Rate 20 18 18 Blood Pressure 143/65 H 125/60 139/64 Pulse Oximetry 95 96 97 Oxygen Delivery Method Room Air MDM - URI/Sore Throat Differential Diagnosis Differential diagnosis: Likely upper respiratory infection, viral infection, bronchitis, influenza and pharyngitis Lab Data Result diagrams: 07/22/22 14:15 07/22/22 14:15 Labs: Lab Results 07/22/22 07/22/22 07/22/22 Range/Units 14:15 14:15 14:20 WBC 7.2 (4.5-11.0) X10^3/uL RBC 3.91 L (4.0-5.2) X10^6/uL Hgb 12.4 (12.0-16.0) g/dL Hct 36.5 (36-46) % MCV 93.3 (80-100) fL MCH 31.8 (26-34) PG MCHC 34.1 (30-36) % RDW 14.1 (11.6-14.8) % Plt Count 180 (150-400) X10^3/uL Neut % (Auto) 77.6 H (50-75) % Lymph % (Auto) 11.4 L (25-40) % [place] % (Auto) 10.4 (3-14) % Eos % (Auto) 0.1 L (2-4) % Baso % (Auto) 0.5 (0-2) % Neut # (Auto) 5600 (5131-8975) /uL Lymph # (Auto) 800 L (1781-5917) /uL [place] # (Auto) 800 (0-900) /uL Eos # (Auto) 0 (0-450) /uL Baso # (Auto) 0 (0-100) /uL Sodium 138 (137-145) mmol/L Potassium 3.5 (3.4-5.1) mmol/L Chloride 103 (98-107) mmol/L Carbon Dioxide 22 (22-32) mmol/L BUN 11 (7-17) mg/dL Creatinine 0.54 (0.52-1.04) mg/dL Estimated GFR > 60 (>60) mL/min BUN/Creatinine Ratio 20.4 (6-22) Glucose 247 H (80-110) mg/dL Calcium 8.5 (8.4-10.2) mg/dL Total Bilirubin 0.5 (0.2-1.3) mg/dL AST 20 (14-36) IU/L ALT 19 (<35) IU/L Alkaline Phosphatase 62 (38-126) U/L Total Protein 7.3 (6.3-8.2) g/dL Albumin 4.1 (3.5-5.0) g/dL Globulin 3.2 (1.7-4.1) g/dL Albumin/Globulin Ratio 1.3 (1.0-2.8) Chlamy pneumoniae PCR Not detected (Not Detect) Adenovirus (PCR) Not detected (Not Detect) B. pertussis DNA (PCR) Not detected (Not Detecte) B.parapertussis DNA PCR Not detected (Not Detecte) Coronavirus OC43 (PCR) Not detected (Not Detect) Coronavirus HKU1 (PCR) Not detected (Not Detect) Coronavirus 229E (PCR) Not detected (Not Detect) SARS-CoV-2 (PCR) Detected H (Not Detecte) Coronavirus NL63 (PCR) Not detected (Not Detect) Human Metapneumovir PCR Not detected (Not Detect) Influenza Type A (PCR) Not detected (Not Detect) Influenza Type B (PCR) Not detected (Not Detect) M. pneumoniae (PCR) Not detected (Not Detect) Parainfluenza 1 (PCR) Not detected (Not Detect) Parainfluenza 2 (PCR) Not detected (Not Detect) Parainfluenza 3 (PCR) Not detected (Not Detect) Parainfluenza 4 (PCR) Not detected (Not Detect) RSV (PCR) Not detected (Not Detect) Entero/Rhino (PCR) Not detected (Not Detect) Point of Care Testing Rapid Strep A Negative Imaging Data Chest x-ray: Radiologist's Impression: [address] [address] XRay Report Signed Patient: Munira Farris MR#: [id number] : 1935 Acct:[id number] Age/Sex: 87 / F Date of Service: 07/22/22 Loc: ED Accession Number: [id number] ?? Procedure: XR chest 1V Ordering Provider: Nilesh Barrett MD PROCEDURE:? XR CHEST 1V ? INDICATIONS:? cough ? TECHNIQUE:? One view of the chest was acquired.? ? COMPARISON:? [facility], , CHEST 2 VIEW, 03/12/2016, 9:48. ? FINDINGS:? ? Surgical changes and devices:? Bilateral axillary clips ? Lungs and pleura:? Lungs are clear.? No pleural effusions or pneumothorax.? ? Mediastinum:? Mediastinal contours appear normal.? Heart size is normal.? ? Bones and chest wall:? No suspicious bony lesions.? Overlying soft tissues appear unremarkable.? ? IMPRESSION:? No evidence acute pulmonary process. ? ? ? Dictated by: Gregor Mccain M.D. on 07/22/2022 at 14:58 ? ? Approved by: Gregor Mccain M.D. on 07/22/2022 at 15:02 ? [facility] Narrative Medical decision making narrative: Appropriate for discharge home. Exam and laboratory studies and imaging are reassuring. Patient not requiring supplemental oxygen. In no distress. Feeling much better after IV fluids. Fever controlled at time of discharge. Return precautions reviewed with patient and her friend and . They desire discharge home. Discharge Plan Departure Patient Disposition: Home Clinical Impression: COVID-19 Instructions: DI for COVID-19 (Suspected or Confirmed ) Activity Restrictions/Additional Instructions: See family doctor in a week for re-evaluation. Keep well hydrated. Return if worse if any questions or concerns. May use Tylenol for any fever or pain. You have been diagnosed with COVID-19. Please continue quarantine for another 4 days. Prescriptions: No Action nitrofurantoin macrocrystal 100 mg capsule 100 mg PO BID Qty: 14 0RF Rx Instructions: must administer with a meal/food tramadol 50 mg tablet 50 mg PO Q8H PRN (Reason: pain) Qty: 20 0RF furosemide 20 mg tablet 40 mg PO DAILY Qty: 180 4RF potassium chloride 10 mEq tablet,ER particles/crystals 10 meq PO DAILY Qty: 90 0RF Rx Instructions: PT DUE FOR FOLLOW UP WITH PCP PRIOR TO FUTURE FILLS. PLEASE CALL TO SCHEDULE APPT. 06/19/20 sertraline [Zoloft] 50 mg tablet 150 mg PO QDAY Qty: 270 0RF Rx Instructions: PT DUE FOR FOLLOW UP W/PCP PRIOR TO FUTURE FILLS. PLEASE CALL CLINIC TO SCHED. APPT. THANKS 09/22/20 atorvastatin 40 mg tablet 40 mg PO BEDTIME Qty: 30 0RF Rx Instructions: PT DUE FOR APPT W/PCP PRIOR TO FUTURE FILLS. PLEASE CALL CLINIC TO SCHED. HAL T. THANKS 02/13/21 metformin 850 mg tablet 850 mg PO BID celecoxib [Celebrex] 200 mg capsule 200 mg PO DAILY PRN omeprazole 40 mg capsule,delayed release(DR/EC) 40 mg PO DAILY PRN Myrbetriq 50 mg tablet extended release 24 hr 50 mg PO DAILY doxycycline hyclate 100 mg capsule 100 mg PO BID Qty: 20 3RF (DME) Resmed Airsense 10 CPAP Qty: 1 Dose Instruction: As directed Label Comments: Pressure: 8-14 cmH2O DME: [facility] Rx Instructions: As directed Referrals: Maximus Mcgarry MD [Primary Care Provider] - Visit Report Forms: Patient Portal/API
[2022-07-22 14:37] LABS: Add Manual Diff / Slide Review NO; Basophils Absolute Auto 0 /uL (0-100); Basophils Percent Auto 0.5 % (0-2); Eosinophils Absolute Auto 0 /uL (0-450); Eosinophils Percent Auto 0.1 % (2-4); Hematocrit 36.5 % (36-46); Hemoglobin 12.4 g/dL (12.0-16.0); Lymphocytes Absolute Auto 800 /uL (1100-4500); Lymphocytes Percent Auto 11.4 % (25-40); Mean Corpuscular HGB Conc 34.1 % (30-36); Mean Corpuscular Hemoglobin 31.8 PG (26-34); Mean Corpuscular Volume 93.3 fL (80-100); Monocytes Absolute Auto 800 /uL (0-900); Monocytes Percent Auto 10.4 % (3-14); Neutrophils Absolute Auto 5600 /uL (1500-7000); Neutrophils Percent Auto 77.6 % (50-75); Platelet Count 180 X10^3/uL (150-400); Red Blood Cell Count 3.91 X10^6/uL (4.0-5.2); Red Cell Distribution Width 14.1 % (11.6-14.8); White Blood Cell Count 7.2 X10^3/uL (4.5-11.0)
[2022-07-22] MEDS: SODIUM CHLORIDE 0.9% 1,000 ML 1000 ML IV (14:41)
[2022-07-22 14:45] LABS: Alanine Aminotransferase 19 IU/L (<35); Albumin 4.1 g/dL (3.5-5.0); Albumin Globulin Ratio 1.3 (1.0-2.8); Alkaline Phosphatase 62 U/L (38-126); Aspartate Aminotransferase 20 IU/L (14-36); BUN Creatinine Ratio 20.4 (6-22); Bilirubin Total 0.5 mg/dL (0.2-1.3); Blood Urea Nitrogen 11 mg/dL (7-17); Calcium 8.5 mg/dL (8.4-10.2); Carbon Dioxide 22 mmol/L (22-32); Chloride 103 mmol/L (98-107); Estimated Glomerular Filt Rate > 60 mL/min (>60); Globulin 3.2 g/dL (1.7-4.1); Glucose 247 mg/dL (80-110); HEMOLYSIS < 15 (0-50); Potassium 3.5 mmol/L (3.4-5.1); Sodium 138 mmol/L (137-145); Total Protein 7.3 g/dL (6.3-8.2)
[2022-07-22 15:30] VITALS: BP 125/60; PULSE 87; RESP 18; O2SAT 96
[2022-07-22 15:49] VITALS: BP 139/64; PULSE 80; RESP 18; O2SAT 97
[2022-07-22 16:08] LABS: Adenovirus Not Detected (Not Detect)
[2022-07-22 16:09] LABS: B. parapertussis Not Detected (Not Detecte); Bordetella pertussis Not Detected (Not Detecte); Chlamydophila pneumoniae Not Detected (Not Detect); Coronavirus 229E Not Detected (Not Detect); Coronavirus HKU1 Not Detected (Not Detect); Coronavirus NL 63 Not Detected (Not Detect); Coronavirus OC43 Not Detected (Not Detect); Human Metapneumovirus Not Detected (Not Detect); Human Rhinovirus/Enterovirus Not Detected (Not Detect); Influenza A Not Detected (Not Detect); Influenza B Not Detected (Not Detect); Mycoplasma pneumoniae Not Detected (Not Detect); Parainfluenza Virus 1 Not Detected (Not Detect); Parainfluenza Virus 2 Not Detected (Not Detect); Parainfluenza Virus 3 Not Detected (Not Detect); Parainfluenza Virus 4 Not Detected (Not Detect); Respiratory Syncytial Virus Not Detected (Not Detect); SARS- CoV-2 Detected (Not Detecte)
[2022-07-22] MEDS: ACETAMINOPHEN 325 MG TABLET 650 MG PO (16:38)
== END 2022-07-22 16:45 | disposition home or self-care (01) ==
PROVIDERS: Emergency Provider Emergency Medicine; PCP Internal Medicine
DX: U07.1 COVID-19 (principal)
CPT/HCPCS: 36415; 71045; 80053; 85025; 87070; 87633; 87880; 96360; 99284

== ENCOUNTER 2022-08-20 15:27 | Emergency (ER) | payer MEDICARE, OTHER, SELFPAY ==
[2022-08-20 15:59] VITALS: BP 135/63; PULSE 76; RESP 16; TEMP 36.6; O2SAT 97; BMI 18.4
--- NOTE | 2022-08-20 16:07 | ED_ITS ---
HPI - Skin/Abscess/Foreign Bdy <Sahra Wilson, [facility] - Last Filed: 08/20/22 18:15> General Chief complaint: Skin/Abscess/Foreign Body Stated complaint: Hurt ankle t-28, Not healing Time Seen by Provider: 08/20/22 16:07 Source: patient Mode of arrival: Ambulatory Limitations: no limitations History of Present Illness HPI narrative: This is a 87-year-old female with history of venous stasis ulcers, diabetes, scoliosis, and difficult to heal wounds who presents to the emergency department complaining of a wound to her left lower extremity which occurred approximately 1 month ago when she was scraped by her walker. She states that she has been changing bandages on this left leg daily for the last month and over the last 1 week she is had swelling, increased tenderness in drainage from this wound. There is still superficial skin covering the wound from the original injury. There is subcutaneous tissue showing with erythema, edema of the left lower extremity. She denies any swelling to this leg before this wound. States that it got swollen over the last couple of days. She has been taking Tylenol occasionally for pain, apply mupirocin ointment but states that she is almost out of it. She lives in [place] half of the year, has a upcoming appointment with Dr. Mcgarry on 09/13/2022. States that she is otherwise well, denies any significant symptoms but states that she had COVID 3 weeks ago. She endorses having ongoing fatigue. Related Data Home Medications Medication Instructions Recorded Confirmed metformin 850 mg tablet 850 mg PO BID 05/09/18 08/12/22 Resmed Airsense 10 CPAP #1 ea 03/01/19 08/12/22 omeprazole 40 mg capsule,delayed 40 mg PO DAILY PRN 04/16/19 08/12/22 release mirabegron 50 mg tablet,extended 50 mg PO DAILY 06/21/19 08/12/22 release 24 hr (Myrbetriq) Previous Rx's Medication Instructions Recorded tramadol 50 mg tablet 50 mg PO Q8H PRN pain #20 tabs 07/09/19 furosemide 20 mg tablet 40 mg PO DAILY #180 tabs 08/07/19 potassium chloride 10 mEq 10 meq PO DAILY #90 tabs 06/19/20 tablet,extended release(part/cryst) sertraline 50 mg tablet (Zoloft) 150 mg PO QDAY #270 tabs 09/22/20 atorvastatin 40 mg tablet 40 mg PO BEDTIME #30 tabs 02/13/21 adhesive bandage 2 X 3 3/4 #20 ea 08/20/22 (Telfa) doxycycline hyclate 100 mg tablet 100 mg PO BID cellulitis, wound 10 08/20/22 days #20 tabs honey-hydrocolloid dressing 2 X #10 ea 08/20/22 2 (MediHoney (hydrocolloid-honey)) mupirocin 2 % topical ointment 1 applic topical BID wound #22 08/20/22 grams Allergies Allergy/AdvReac Type Severity Reaction Status Date / Time erythromycin base Allergy Mild Verified 08/12/22 15:17 [ERYTHROMYCIN BASE] ciprofloxacin [CIPROFLOXACIN] Allergy Unknown Verified 08/12/22 15:17 Sulfa (Sulfonamide Allergy Unknown Verified 08/12/22 15:17 Antibiotics) [SULFA (SULFONAMIDE ANTIBIOTICS)] Review of Systems <KATERIN Carter - Last Filed: 08/20/22 18:15> Review of Systems Narrative: Review of systems is negative for acute abnormalities unless otherwise noted in HPI Patient History <KATERIN Carter - Last Filed: 08/20/22 18:15> Medical History Abnormal gait (03/11/17) Ankle pain (2011) Controlled type 2 diabetes mellitus without complication (2012) COVID-19 (~07/2022) Depression (2004) Fractures (2004) History of fracture of humerus (03/11/17) History of kidney stones Hyperlipidemia (06/04/14) Idiopathic hypersomnia Impairment of balance (03/11/17) Kidney stones (1994) Malignant neoplasm of breast (2010) Obstructive sleep apnea of adult Osteoporosis Scoliosis (1936) Urinary incontinence (2011) Surgical History History of gynecologic surgery (1992) Status post breast lumpectomy Status post hysterectomy (1986) Family History Father Atherosclerosis Mother No problems noted. Social History marital status: details: loi Schaeffer household members: spouse lives independently: Yes caregiver/support person: No housing: house Smoking Status: Former smoker alcohol intake: current substance use type: does not use Smoking Status: Former smoker alcohol intake frequency: 0-2 drinks per day Alcohol type: wine Substance Use Type: does not use Exam <KATERIN Carter - Last Filed: 08/20/22 18:15> Narrative Exam Narrative: Reviewed vitals signs and nursing notes. General: cooperative, comfortable, in no acute distress, well groomed, afebrile HEENT: symmetrical facial expressions, moist mucous membranes, EOMI, Cardiovascular: regular rate and rhythm, left lower extremity edema with erythema surrounding wound, warm extremities no other open wounds, Skin: brisk capillary refill, left lower extremity wound on the lateral aspect of her lower leg, approximately 2-1/2 cm x 2 cm with a superficial avulsion, wound margins were Neuro: normal speech and cognition, A&O x3, ambulatory, clear speech Psych: mental status is grossly normal, congruent mood, normal affect, pleasant and cooperative Initial Vital Signs Initial Vital Signs: Vital Signs Temperature 97.8 F 08/20/22 15:59 Pulse Rate 76 08/20/22 15:59 Respiratory Rate 16 08/20/22 15:59 Blood Pressure 135/63 08/20/22 15:59 Pulse Oximetry 97 08/20/22 15:59 Oxygen Delivery Method 08/20/22 15:59 <Vicky Benjamin DO - Last Filed: 08/21/22 09:57> Initial Vital Signs Initial Vital Signs: Vital Signs Temperature 97.8 F 08/20/22 15:59 Pulse Rate 76 08/20/22 15:59 Respiratory Rate 16 08/20/22 15:59 Blood Pressure 135/63 08/20/22 15:59 Pulse Oximetry 97 08/20/22 15:59 Oxygen Delivery Method 08/20/22 15:59 Procedures <KATERIN Carter - Last Filed: 08/20/22 18:15> Laceration Repair Laceration 1: Site: lower extremity Side (If applicable): left Size (cm): 2.5 Description: flap Depth: simple, single layer Pre-repair: wound explored, irrigated extensively, deep structures intact (Ulcer in the central part of the wound is approximately 6 mm deep, does not extend beyond subcutaneous tissue, no fluctuance, erythema surrounding wound) and wound margins revised Course <KATERIN Carter - Last Filed: 08/20/22 18:15> Orders Ordered: Discontinued Medications Bacitracin (Bacitracin Oint 0.9 Gm Pckt) 1 applic TOP NOW ONE Stop: 08/20/22 16:22 Last Admin: 08/20/22 16:27 Dose: 1 applic Documented By: SHIV Doxycycline Hyclate (Doxycycline Hyclate 100 Mg Tablet) 100 mg PO NOW ONE Stop: 08/20/22 16:22 Last Admin: 08/20/22 16:27 Dose: 100 mg Documented By: SHIV Ketorolac Tromethamine (Ketorolac 10 Mg Tablet) 10 mg PO NOW ONE Stop: 08/20/22 16:22 Last Admin: 08/20/22 16:27 Dose: 10 mg Documented By: SHIV Vital Signs Vital signs: Vital Signs - 8 hr 08/20/22 15:59 Temperature 97.8 F Pulse Rate 76 Respiratory Rate 16 Blood Pressure 135/63 Pulse Oximetry 97 Oxygen Delivery Method Room Air <Vicky Benjamin DO - Last Filed: 08/21/22 09:57> Orders Ordered: Discontinued Medications Bacitracin (Bacitracin Oint 0.9 Gm Pckt) 1 applic TOP NOW ONE Stop: 08/20/22 16:22 Last Admin: 08/20/22 16:27 Dose: 1 applic Documented By: SHIV Doxycycline Hyclate (Doxycycline Hyclate 100 Mg Tablet) 100 mg PO NOW ONE Stop: 08/20/22 16:22 Last Admin: 08/20/22 16:27 Dose: 100 mg Documented By: SHIV Ketorolac Tromethamine (Ketorolac 10 Mg Tablet) 10 mg PO NOW ONE Stop: 08/20/22 16:22 Last Admin: 08/20/22 16:27 Dose: 10 mg Documented By: SHIV Vital Signs Vital signs: Vital Signs - 8 hr 08/20/22 15:59 Temperature 97.8 F Pulse Rate 76 Respiratory Rate 16 Blood Pressure 135/63 Pulse Oximetry 97 Oxygen Delivery Method Room Air MDM - Skin/Abscess/Foreign Bdy <KATERIN Carter - Last Filed: 08/20/22 18:15> MDM Narrative Medical decision making narrative: This is an 87-year-old female with history of venous stasis ulcer, poorly healing wounds, who presents to the emergency department with a wound to her left lower extremity that occurred from trauma from her walker approximately 1 month ago. She has been applying mupirocin ointment and changing dressings twice a day for the last few weeks, has not had any interval improvement of this wound. She denies known history of MRSA or other wound infection but states th at she had a wound on her right lower extremity that took 6 months to heal while she was seen wound care. She lives in [place] half the year, has recently returned, states that she was on antibiotics only for short period of time with her previous wound. Today at wound culture was obtained and is pending, a referral to Wound Care was submitted, wound margins were revised, removed all devitalized soft tissue and irrigated with normal saline, cleaned with half- normal saline and half iodine. Bacitracin was applied, Xeroform, Telfa and a light wrap dressing. Patient is encouraged to change wound dressings 2 times daily, shower as usual, follow-up with wound care next week and follow-up with Dr. Mcgarry at her scheduled appointment on 09/13/2022. We will follow-up on the wound culture. Patient was given strict return precautions for any worsening of this, she denies any systemic symptoms including fever, chills, worsening fatigue or muscle aches. She had COVID illness 3 weeks ago. She is not currently have a cough, congestion, shortness of breath or abnormal breath sounds. Patient is appropriate and amenable to discharge home. Vital signs are stable on repeat examination is unremarkable. Patient has been informed of results. Patient has been given strict return to ER precautions for any new or worsening symptoms. Patient understands to follow up closely with outpatient ambrocio bocanegra as instructed. Patient understands plan and agrees to discharge home. All questions and concerns answered at this time. Discharge Plan Departure Patient Disposition: Home Clinical Impression: Wound cellulitis Instructions: DI for Wound Infection, Skin Wound Activity Restrictions/Additional Instructions: *You have been diagnosed with a wound to your left lower extremity which is taking a long time to heal likely due to venous stasis. The wound clinic should call you for your appointment. Please take Tylenol every 6 hours as needed for your pain, ibuprofen in addition to this as needed. Use the topical mupirocin morning and night and change her bandages at least daily. Okay to shower like usual. Please return to the emergency department if you have worsening of this wound, I hope that you feel better soon, thank you for your patience today. Please elevate your leg frequently, follow-up with Dr. Mcgarry, come back if this is worsening, we will call you about your wound culture if this antibiotic is not sufficient. I hope you feel better soon. *What to do: *Please continue to take your regular medications as directed. x New medication prescriptions sent to your pharmacy: [facility] New medication written as a paper prescription No new medications given *Please follow up with your primary care provider in 2-3 days, call for an appointment. Let them know you were seen in the Emergency Department and that we asked that you be seen for follow-up. We will electronically transmit a record of today's note if your PCP is in our system *If you do not have a primary care provider please contact [phone] to establish care with one of the [facility] primary care providers. *Return to Emergency Department if you should have any new, worsening, or concerning symptoms, such as fever greater than 101F, chills, worsening pain, persistent vomiting or other bothersome symptoms. Prescriptions: New doxycycline hyclate 100 mg tablet 100 mg PO BID 10 Days Qty: 20 0RF mupirocin 2 % ointment 1 applic topical BID Qty: 22 0RF (DME) MediHoney (hydrocolloid-honey) 2 X 2 bandage See Rx Instructions .Route Qty: 10 0RF Rx Instructions: As directed (DME) Telfa 2 X 3 3/4 bandage See Rx Instructions .Route Qty: 20 0RF Rx Instructions: As directed No Action tramadol 50 mg tablet 50 mg PO Q8H PRN (Reason: pain) Qty: 20 0RF furosemide 20 mg tablet 40 mg PO DAILY Qty: 180 4RF potassium chloride 10 mEq tablet,ER particles/crystals 10 meq PO DAILY Qty: 90 0RF Rx Instructions: PT DUE FOR FOLLOW UP WITH PCP PRIOR TO FUTURE FILLS. PLEASE CALL TO SCHEDULE APPT. 06/19/20 sertraline [Zoloft] 50 mg tablet 150 mg PO QDAY Qty: 270 0RF Rx Instructions: PT DUE FOR FOLLOW UP W/PCP PRIOR TO FUTURE FILLS. PLEASE CALL CLINIC TO SERGEI Mohamud APPT. THANKS 09/22/20 atorvastatin 40 mg tablet 40 mg PO BEDTIME Qty: 30 0RF Rx Instructions: PT DUE FOR APPT W/PCP PRIOR TO FUTURE FILLS. PLEASE CALL CLINIC TO APPT. THANKS 02/13/21 metformin 850 mg tablet 850 mg PO BID omeprazole 40 mg capsule,delayed release(DR/EC) 40 mg PO DAILY PRN Myrbetriq 50 mg tablet extended release 24 hr 50 mg PO DAILY (DME) Resmed Airsense 10 CPAP Qty: 1 Dose Instruction: As directed Label Comments: Pressure: 8-14 cmH2O DME: [facility] Rx Instructions: As directed Referrals: [facility] [Outside] Maximus Mcgarry MD [Primary Care Provider] - Visit Report Forms: Patient Portal/API <Vicky Benjamin DO - Last Filed: 08/21/22 09:57> Cosign ED Attending Denzelature Attestation: I was immediately available in the department for consultation. Documentation has been reviewed. I agree with assessment and plan.
[2022-08-20] MEDS: BACITRACIN OINT 0.9 GM PCKT 1 APPLIC TOP (16:27)
[2022-08-20] MEDS: DOXYCYCLINE HYCLATE 100 MG TABLET PO (16:27)
[2022-08-20] MEDS: KETOROLAC 10 MG TABLET PO (16:27)
== END 2022-08-20 17:11 | disposition home or self-care (01) ==
PROVIDERS: Emergency Provider Nurse Practitioner Critical Care Medicine; PCP Internal Medicine
DX: S81.802A Unspecified open wound, left lower leg, initial encounter (principal); L03.116 Cellulitis of left lower limb; W22.8XXA Striking against or struck by other objects, initial encounter
CPT/HCPCS: 11042; 87070; 87075; 87077; 87147; 87186; 87205; 99283

== ENCOUNTER → 2022-08-26 09:30 | Outpatient (CLI) | payer MEDICARE, OTHER, SELFPAY | PROVIDERS: PCP Internal Medicine; Referring Provider Nurse Practitioner Critical Care Medicine; Visit Provider Family Medicine | DX: I87.2 Venous insufficiency (chronic) (peripheral) (principal); E11.622 Type 2 diabetes mellitus with other skin ulcer; L97.822 Non-pressure chronic ulcer of other part of left lower leg with fat layer exposed; L97.312 Non-pressure chronic ulcer of right ankle with fat layer exposed; R60.0 Localized edema | CPT/HCPCS: 11042; 36415; 80053; 80061; 82043; 82570; 83036; 84134; 85025; 99203; 99213 ==

== ENCOUNTER → 2022-08-26 11:19 | Outpatient (CLI) | payer MEDICARE, OTHER, SELFPAY ==
[2022-08-26 13:39] LABS: Add Manual Diff / Slide Review NO; Basophils Absolute Auto 100 /uL (0-100); Basophils Percent Auto 0.7 % (0-2); Eosinophils Absolute Auto 100 /uL (0-450); Eosinophils Percent Auto 1.2 % (2-4); Hematocrit 35.8 % (36-46); Hemoglobin 12.5 g/dL (12.0-16.0); Lymphocytes Absolute Auto 1800 /uL (1100-4500); Lymphocytes Percent Auto 24.5 % (25-40); Mean Corpuscular HGB Conc 34.9 % (30-36); Mean Corpuscular Hemoglobin 32.2 PG (26-34); Mean Corpuscular Volume 92.2 fL (80-100); Monocytes Absolute Auto 500 /uL (0-900); Neutrophils Absolute Auto 4900 /uL (1500-7000); Neutrophils Percent Auto 66.6 % (50-75); Platelet Count 260 X10^3/uL (150-400); Red Blood Cell Count 3.88 X10^6/uL (4.0-5.2); Red Cell Distribution Width 14.3 % (11.6-14.8); White Blood Cell Count 7.3 X10^3/uL (4.5-11.0)
[2022-08-26 14:02] LABS: Hemoglobin A1C% w Est Avg Glu 8.7 % (4.0-6.0)
[2022-08-26 14:21] LABS: Alanine Aminotransferase 19 IU/L (<35); Albumin Globulin Ratio 1.4 (1.0-2.8); Alkaline Phosphatase 79 U/L (38-126); Aspartate Aminotransferase 18 IU/L (14-36); BUN Creatinine Ratio 33.3 (6-22); Bilirubin Total 0.3 mg/dL (0.2-1.3); Blood Urea Nitrogen 19 mg/dL (7-17); Calcium 9.5 mg/dL (8.4-10.2); Carbon Dioxide 28 mmol/L (22-32); Chloride 99 mmol/L (98-107); Estimated Glomerular Filt Rate > 60 mL/min (>60); Globulin 2.9 g/dL (1.7-4.1); Glucose 208 mg/dL (80-110); HEMOLYSIS < 15 (0-50); Potassium 4.2 mmol/L (3.4-5.1); Sodium 138 mmol/L (137-145); Total Protein 6.9 g/dL (6.3-8.2)
[2022-08-26 14:27] LABS: Cholesterol 244 mg/dL (140-199); HDL Cholesterol 47 mg/dL (40-60); LDL Cholesterol Calculated 154 mg/dL (<100); Triglycerides 215 mg/dL (35-150)
[2022-08-26 14:28] LABS: Prealbumin 18.5 mg/dL (17.6-36.0)
[2022-08-26 16:17] LABS: Creatinine Urine Random 114.4 mg/dL
[2022-08-26 16:18] LABS: Microalbumi Creatinin Ratio Ur 14.8 ug/mg CR (<30); Microalbumin Urine Random 1.7 mg/dL (0-1.6)
== END ==
PROVIDERS: PCP Internal Medicine; Referring Provider Surgery; Visit Provider Surgery
DX: E11.9 Type 2 diabetes mellitus without complications (principal); I87.312 Chronic venous hypertension (idiopathic) with ulcer of left lower extremity; E78.5 Hyperlipidemia, unspecified; I87.2 Venous insufficiency (chronic) (peripheral)
CPT/HCPCS: 36415; 80053; 80061; 82043; 82570; 83036; 84134; 85025

== ENCOUNTER 2022-08-28 15:42 | Emergency (ER) | payer MEDICARE, OTHER, SELFPAY ==
[2022-08-28 15:45] VITALS: BP 122/69; PULSE 80; RESP 18; TEMP 36.9; O2SAT 96; BMI 18.6
--- NOTE | 2022-08-28 15:53 | DI.RAD.S_ITS ---
PROCEDURE: XR HUMERUS LT 2V INDICATIONS: fall, with left upper arm injury TECHNIQUE: 2 views of the humerus were acquired. COMPARISON: [facility], CR, SHOULDER MINIMUM 2 VIEW LEFT, 07/17/2016, 14:25. [facility], CR, XR CLAVICLE COMP LT, 07/21/2016, 10:37. [facility], CR, XR CHEST 1V, 07/22/2022, 14:32. [facility], NIKKO, HUMERUS 2V LEFT, 06/18/2013, 12:25. FINDINGS: Bones: Postoperative changes are seen, with plate and screw fixation of the proximal left humerus as well as the humeral shaft. No findings of hardware failure or hardware loosening are seen. No marce acute fracture is seen. No dislocation. The visualized ribs appear intact. Soft tissues: No suspicious soft tissue calcifications. Left axillary clips are seen. Left breast calcification and apparent left breast clips can be seen. IMPRESSION: Negative for acute fracture. Intact appearing hardware. Left breast postoperative change. Dictated by: Олег Deshpande M.D. on 08/28/2022 at 15:40 Approved by: Олег Deshpande M.D. on 08/28/2022 at 15:44
--- NOTE | 2022-08-28 16:33 | ED_ITS ---
HPI - Fall <Sahra Chad Wilson [facility] - Last Filed: 08/28/22 17:10> General Chief Complaint: Fall Stated Complaint: [facility] fall/ laceration Time Seen by Provider: 08/28/22 16:00 Source: EMS Mode of arrival: EMS History of Present Illness HPI Narrative: This is a 87-year-old female presents to the emergency department by EMS after she had a mechanical fall while trying to move a TV off the counter top with her approximately 1 hour ago. She states that she lost her balance and stumbled down falling across the glass talk coffee table with her back. She states the glass did not break, she scraped the posterior of her left arm on the coffee table and has a skin tear there which was wrapped up by EMS. She took some Tylenol prior to her arrival, denies hitting her head, denies neck pain, back pain, chest pain, shortness of breath, wheezing, headache, loss of consciousness, nausea or vomiting. She states that her can come pick her up. She denies any significant medical conditions, is being treated for venous stasis ulcers to her bilateral lower extremities, she has an impairment of balance at baseline. She is seen wound care for bilateral lower extremity venous stasis ulcers and states that she saw them last on Tuesday and her wounds are getting better, does not remember what day she is scheduled to return next week. She has a history of diabetes type 2. Related Data Home Medications Medication Instructions Recorded Confirmed metformin 850 mg tablet 850 mg PO BID 05/09/18 08/12/22 Resmed Airsense 10 CPAP #1 ea 03/01/19 08/12/22 omeprazole 40 mg capsule,delayed 40 mg PO DAILY PRN 04/16/19 08/12/22 release mirabegron 50 mg tablet,extended 50 mg PO DAILY 06/21/19 08/12/22 release 24 hr (Myrbetriq) Previous Rx's Medication Instructions Recorded tramadol 50 mg tablet 50 mg PO Q8H PRN pain #20 tabs 07/09/19 furosemide 20 mg tablet 40 mg PO DAILY #180 tabs 08/07/19 potassium chloride 10 mEq 10 meq PO DAILY #90 tabs 06/19/20 tablet,extended release(part/cryst) sertraline 50 mg tablet (Zoloft) 150 mg PO QDAY #270 tabs 09/22/20 atorvastatin 40 mg tablet 40 mg PO BEDTIME #30 tabs 02/13/21 adhesive bandage 2 X 3 3/4 #20 ea 08/20/22 (Telfa) doxycycline hyclate 100 mg tablet 100 mg PO BID cellulitis, wound 10 08/20/22 days #20 tabs honey-hydrocolloid dressing 2 X #10 ea 08/20/22 2 (MediHoney (hydrocolloid-honey)) mupirocin 2 % topical ointment 1 applic topical BID wound #22 08/20/22 grams Allergies Allergy/AdvReac Type Severity Reaction Status Date / Time erythromycin base Allergy Mild Verified 08/28/22 15:50 [ERYTHROMYCIN BASE] ciprofloxacin [CIPROFLOXACIN] Allergy Unknown Verified 08/28/22 15:50 Sulfa (Sulfonamide Allergy Unknown Verified 08/28/22 15:50 Antibiotics) [SULFA (SULFONAMIDE ANTIBIOTICS)] Review of Systems <KATERIN Carter - Last Filed: 08/28/22 17:10> Review of Systems Narrative: Review of systems is negative for acute abnormalities unless otherwise noted in HPI Patient History <KATERIN Carter - Last Filed: 08/28/22 17:10> Medical History Abnormal gait (03/11/17) Ankle pain (2011) Controlled type 2 diabetes mellitus without complication (2012) COVID-19 (~07/2022) Depression (2004) Fractures (2004) History of fracture of humerus (03/11/17) History of kidney stones Hyperlipidemia (06/04/14) Idiopathic hypersomnia Impairment of balance (03/11/17) Kidney stones (1994) Malignant neoplasm of breast (2010) Obstructive sleep apnea of adult Osteoporosis Scoliosis (1936) Urinary incontinence (2011) Surgical History History of gynecologic surgery (1992) Status post breast lumpectomy Status post hysterectomy (1986) Family History Father Atherosclerosis Mother No problems noted. Social History marital status: details: loi Schaeffer household members: spouse lives independently: Yes caregiver/support person: No housing: house Smoking Status: Former smoker alcohol intake: current substance use type: does not use Smoking Status: Former smoker alcohol intake frequency: 0-2 drinks per day Alcohol type: wine Substance Use Type: does not use Exam <KATERIN Carter - Last Filed: 08/28/22 17:10> Narrative Exam Narrative: Reviewed vitals signs and nursing notes. General: cooperative, comfortable, in no acute distress, well groomed, neurologically intact, good historian, denies significant pain HEENT: symmetrical facial expressions, moist mucous membranes, EOMI, atraumatic Cardiovascular: regular rate and rhythm, no peripheral edema, warm extremities Respiratory: normal effort, able to speak in complete sentences, without wheezing, stridor, or abnormal breath sounds. No retractions or tachypnea. GI: abdomen soft, nontender to palpation, nondistended, without masses, rebound tenderness or exquisite tenderness with exam. MSK: moves all extremities, neurovascularly intact, no weakness, normal tone, back examined without visible injury, no tenderness along spine to palpation, without weakness bilaterally upper or lower extremities Skin: brisk capillary refill, without pallor or erythema, skin tear to the posterior of her left upper arm, approximately 6 in x 4 in, bright red blood is present, does not extend deep below the dermis, superficial skin tear. This was debrided by myself, clean with normal saline, covered with a nonstick dressing, bacitracin, and a light gauze wrap. Neuro: normal speech and cognition, A&O x3, ambulatory, clear speech Psych: mental status is grossly normal, congruent mood, normal affect, pleasant and cooperative Initial Vital Signs Initial Vital Signs: Vital Signs Temperature 98.4 F 08/28/22 15:45 Pulse Rate 80 08/28/22 15:45 Respiratory Rate 18 08/28/22 15:45 Blood Pressure 122/69 08/28/22 15:45 Pulse Oximetry 96 08/28/22 15:45 Oxygen Delivery Method 08/28/22 15:45 <Nessa Colon MD - Last Filed: 08/29/22 18:41> Initial Vital Signs Initial Vital Signs: Vital Signs Temperature 98.4 F 08/28/22 15:45 Pulse Rate 80 08/28/22 15:45 Respiratory Rate 18 08/28/22 15:45 Blood Pressure 122/69 08/28/22 15:45 Pulse Oximetry 96 08/28/22 15:45 Oxygen Delivery Method 08/28/22 15:45 Course <KATERIN Carter - Last Filed: 08/28/22 17:10> Orders Ordered: Discontinued Medications Bacitracin (Bacitracin Oint 0.9 Gm Pckt) 1 applic TOP NOW ONE Stop: 08/28/22 16:31 Last Admin: 08/28/22 16:35 Dose: 1 applic Documented By: JARAD Vital Signs Vital signs: Vital Signs - 8 hr 08/28/22 15:45 Temperature 98.4 F Pulse Rate 80 Respiratory Rate 18 Blood Pressure 122/69 Pulse Oximetry 96 Oxygen Delivery Method Room Air <Nessa Colon MD - Last Filed: 08/29/22 18:41> Orders Ordered: Discontinued Medications Bacitracin (Bacitracin Oint 0.9 Gm Pckt) 1 applic TOP NOW ONE Stop: 08/28/22 16:31 Last Admin: 08/28/22 16:35 Dose: 1 applic Documented By: JARAD Vital Signs Vital signs: Vital Signs - 8 hr 08/28/22 15:45 Temperature 98.4 F Pulse Rate 80 Respiratory Rate 18 Blood Pressure 122/69 Pulse Oximetry 96 Oxygen Delivery Method Room Air MDM - Fall <KATERIN Carter - Last Filed: 08/28/22 17:10> Imaging Data Extremity x-ray #1: Radiologist's Impression: PROCEDURE:? XR HUMERUS LT 2V ? INDICATIONS:? fall, with left upper arm injury ? TECHNIQUE:? 2 views of the humerus were acquired.? ? COMPARISON:? [facility], NIKKO, SHOULDER MINIMUM 2 VIEW LEFT, 07/17/2016, 14:25.? [facility], NIKKO, XR CLAVICLE COMP LT, 07/21/2016, 10:37.? [facility], NIKKO, XR CHEST 1V, 07/22/2022, 14:32.? [facility], NIKKO, HUMERUS 2V LEFT, 06/18/2013, 12:25. ? FINDINGS:? ? Bones:? Postoperative changes are seen, with plate and screw fixation of the proximal left humerus as well as the humeral shaft.? No findings of hardware failure or hardware loosening are seen.? ? No marce acute fracture is seen.? No dislocation.? The visualized ribs appear intact.? ? Soft tissues:? No suspicious soft tissue calcifications.? Left axillary clips are seen.? Left breast calcification and apparent left breast clips can be seen. ? ? IMPRESSION:? Negative for acute fracture. ? Intact appearing hardware. ? Left breast postoperative change. ? ? Dictated by: Олег Deshpande M.D. on 08/28/2022 at 15:40 ? ? Approved by: Олег Deshpande M.D. on 08/28/2022 at 15:44 ? MDM Narrative Medical decision making narrative: This is an 87-year-old female who has balance issues at baseline, type 2 diabe emmanuel, is currently seeing wound care for bilateral lower extremity wounds secondary to venous stasis, had a mechanical fall today stumbling backwards while trying to move a TV off the counter top with her , she fell across a coffee table and scraped the posterior of her left upper arm and has a superficial skin tear approximately 6 in x 4 in. I debrided this, cleansed it with normal saline, apply bacitracin, Xeroform and a nonstick dressing, encouraged patient to follow-up with wound care, wound care referral was faxed and hopefully she can follow-up sooner than the end of the week. Patient did not hit her head, does not have neck pain, did not have spinal tenderness to palpation, weakness, she is alert and oriented x3 without any focal neuro deficit. Wound care was completed by myself, gave her supplies for the next few days of nonstick dressing and Xeroform. Patient has mupirocin from her previous visit from dc that she can apply at home. She understands to follow-up with wound care Tuesday, she is without weakness, ambulatory, and states that her arm feels better. She took Tylenol prior to arrival today and take this at home for her pain. Patient is appropriate and amenable to discharge home. Vital signs are stable on repeat examination is unremarkable. Patient has been informed of results. Patient has been given strict return to ER precautions for any new or worsening symptoms. Patient understands to follow up closely with outpatient providers as instructed. Patient understands plan and agrees to discharge home. All questions and concerns answered at this time. Discharge Plan Departure Patient Disposition: Home Clinical Impression: Skin tear of left upper extremity Fall Qualifiers: Encounter type: initial encounter Qualified Code(s): W19.XXXA - Unspecified fall, initial encounter Instructions: Debridement of a Wound, Infection, or Burn Activity Restrictions/Additional Instructions: *You have been diagnosed with a large skin tear to the back of your left arm. I have placed another referral to wound care for you, please cover this with nonstick dressing, antibiotic ointment as prescribed, and follow-up with wound care next week. Please call them and ask them if you can be seen early in the week and if they received your new referral. Please have your change her dressings daily, it is okay to shower like usual, it might be painful, use cool compresses to clean if it is too painful to shower. Please cover with ointment prior to a shower to help manage the pain. Please return for any new or worsening conditions, please try hard not to fall, you should not be moving TVs with your with your balance issues, please be careful, thank you for coming in. :) *What to do: *Please continue to take your regular medications as directed. [ ] New medication prescriptions sent to your pharmacy: [ ] [ ] New medication written as a paper prescription [x ] No new medications given *Please follow up with your primary care provider in 2-3 days, call for an appointment. Let them know you were seen in the Emergency Department and that we asked that you be seen for follow-up. We will electronically transmit a record of today's note if your PCP is in our system *If you do not have a primary care provider please contact [phone] to establish care with one of [facility] primary care providers. *Return to Emergency Department if you should have any new, worsening, or concerning symptoms, such as [fever greater than 101F, chills, worsening pain, persistent vomiting or other bothersome symptoms]. Prescriptions: No Action tramadol 50 mg tablet 50 mg PO Q8H PRN (Reason: pain) Qty: 20 0RF furosemide 20 mg tablet 40 mg PO DAILY Qty: 180 4RF potassium chloride 10 mEq tablet,ER particles/crystals 10 meq PO DAILY Qty: 90 0RF Rx Instructions: PT DUE FOR FOLLOW UP WITH PCP PRIOR TO FUTURE FILLS. PLEASE CALL TO SCHEDULE APPT. 9/3/20 sertraline [Zoloft] 50 mg tablet 150 mg PO QDAY Qty: 270 0RF Rx Instructions: PT DUE FOR FOLLOW UP W/PCP PRIOR TO FUTURE FILLS. PLEASE CALL CLINIC TO SCHED. APPT. THANKS 09/22/20 atorvastatin 40 mg tablet 40 mg PO BEDTIME Qty: 30 0RF Rx Instructions: PT DUE FOR APPT W/PCP PRIOR TO FUTURE FILLS. PLEASE CALL CLINIC TO SCHED. APPT. THANKS 02/13/21 metformin 850 mg tablet 850 mg PO BID omeprazole 40 mg capsule,delayed release(DR/EC) 40 mg PO DAILY PRN Myrbetriq 50 mg tablet extended release 24 hr 50 mg PO DAILY doxycycline hyclate 100 mg tablet 100 mg PO BID 10 Days Qty: 20 0RF mupirocin 2 % ointment 1 applic topical BID Qty: 22 0RF (DME) MediHoney (hydrocolloid-honey) 2 X 2 bandage See Rx Instructions .Route Qty: 10 0RF Rx Instructions: As directed (DME) Telfa 2 X 3 3/4 bandage See Rx Instructions .Route Qty: 20 0RF Rx Instructions: As directed (DME) Resmed Airsense 10 CPAP Qty: 1 Dose Instruction: As directed Label Comments: Pressure: 8-14 cmH2O DME: [facility] Rx Instructions: As directed Referrals: Maximus Mcgarry MD [Primary Care Provider] - Visit Report Forms: Patient Portal/API <Nessa Colon MD - Last Filed: 08/29/22 18:41> Cosign ED Attending Denzelature Attestation: I was immediately available in the department for consultation throughout this patient's visit. I agree with documentation as above. Nessa Colon MD
[2022-08-28] MEDS: BACITRACIN OINT 0.9 GM PCKT 1 APPLIC TOP (16:35)
[2022-08-28 16:39] VITALS: BP 122/64; PULSE 81; RESP 18; O2SAT 96
--- NOTE | 2022-08-28 16:47 | PC.NURSE ---
[facility] copy given to patient
--- NOTE | 2022-08-28 18:21 | PC.NURSE ---
Provider performed wound care and treatment at bedside.
[2022-08-28 18:22] VITALS: BP 119/71; PULSE 79; RESP 17; O2SAT 96
--- NOTE | 2022-08-28 19:47 | CM.SWNOTE ---
MANAGER HAIR Note MANAGER HAIR receives MANAGER HAIR consult from RN upon patient's d/c to home. Patient is 87 y/o female who resides with in [place].Patient endorses she fell today after trying to lift a television. Patient endorses she sometimes has difficulty walking and uses a FWW. Patient endorses she drives. Patient endorses independence with ADLs but inquires about meals on wheels. MANAGER HAIR provides patient with senior resource guide with contact information for meals on wheels. 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 It is reported to MANAGER HAIR that patient's d/c plan is to f/u with wound care clinic referral. MANAGER HAIR discusses the option for HH services and wound care in the home as well as support from Community Global [employer] Blair Luna. Patient endorses preference for wound care f/u and states she has a PCP appt with Dr. Mcgarry this month. MANAGER HAIR reviews EMR and sees patient's upcoming appt on 09/13/22. MANAGER HAIR recommends that patient discuss HH services with PCP as he can submit referral if patient changes her mind. MANAGER HAIR calls Blair Luna and leaves VM requesting community outreach to patient and . MANAGER HAIR attempts to call Dr. Mcgarry's office but is unable to leave a VM. MANAGER HAIR provides patient with contact information for Blair [facility] [employer] and provides patient with [employer] services for support regarding tree trimmer. RN provides patient and with [employer] taxi transportation due to concern for driving at night. Plan: Patient d/c'd to home upon medical clearance, Blair Luna to f/u with patient and . Patient to f/u with wound care clinic and PCP. Darline Osman CERAMIST
== END 2022-08-28 18:23 | disposition home or self-care (01) ==
PROVIDERS: Emergency Provider Nurse Practitioner Critical Care Medicine; PCP Internal Medicine
DX: S41.112A Laceration without foreign body of left upper arm, initial encounter (principal); W01.190A Fall on same level from slipping, tripping and stumbling with subsequent striking against furniture, initial encounter
CPT/HCPCS: 73060; 99282; 99283

== ENCOUNTER → 2022-08-30 14:33 | Outpatient (CLI) | payer MEDICARE, OTHER, SELFPAY | PROVIDERS: PCP Internal Medicine; Referring Provider Nurse Practitioner Critical Care Medicine; Visit Provider Family Medicine | DX: I87.2 Venous insufficiency (chronic) (peripheral) (principal); L97.822 Non-pressure chronic ulcer of other part of left lower leg with fat layer exposed; L97.312 Non-pressure chronic ulcer of right ankle with fat layer exposed; S41.102A Unspecified open wound of left upper arm, initial encounter; M79.661 Pain in right lower leg | CPT/HCPCS: 29581; 97597 ==

== ENCOUNTER → 2022-09-01 14:45 | Outpatient (CLI) | payer MEDICARE, OTHER, SELFPAY | PROVIDERS: PCP Internal Medicine; Referring Provider Internal Medicine; Visit Provider Surgery | DX: I87.2 Venous insufficiency (chronic) (peripheral) (principal); L97.822 Non-pressure chronic ulcer of other part of left lower leg with fat layer exposed; L97.312 Non-pressure chronic ulcer of right ankle with fat layer exposed; S41.102A Unspecified open wound of left upper arm, initial encounter | CPT/HCPCS: 29581 ==

== ENCOUNTER → 2022-09-16 13:18 | Outpatient (CLI) | payer MEDICARE, OTHER, SELFPAY | PROVIDERS: PCP Internal Medicine; Referring Provider Nurse Practitioner Critical Care Medicine; Visit Provider Surgery | DX: I87.2 Venous insufficiency (chronic) (peripheral) (principal); L97.822 Non-pressure chronic ulcer of other part of left lower leg with fat layer exposed; L97.312 Non-pressure chronic ulcer of right ankle with fat layer exposed; S41.102D Unspecified open wound of left upper arm, subsequent encounter | CPT/HCPCS: 11042 ==

== ENCOUNTER → 2022-09-30 13:57 | Outpatient (CLI) | payer MEDICARE, OTHER, SELFPAY | PROVIDERS: PCP Internal Medicine; Referring Provider Internal Medicine; Visit Provider Surgery | DX: I87.2 Venous insufficiency (chronic) (peripheral) (principal); L97.822 Non-pressure chronic ulcer of other part of left lower leg with fat layer exposed; L97.312 Non-pressure chronic ulcer of right ankle with fat layer exposed; M79.604 Pain in right leg | CPT/HCPCS: 11042; 99212; 99213 ==

== ENCOUNTER → 2022-10-14 15:31 | Outpatient (CLI) | payer MEDICARE, OTHER, SELFPAY | PROVIDERS: PCP Internal Medicine; Referring Provider Internal Medicine; Visit Provider Surgery | DX: I87.2 Venous insufficiency (chronic) (peripheral) (principal); L97.822 Non-pressure chronic ulcer of other part of left lower leg with fat layer exposed; L97.312 Non-pressure chronic ulcer of right ankle with fat layer exposed | CPT/HCPCS: 11042 ==

== ENCOUNTER 2022-10-17 18:18 | Emergency (ER) | payer MEDICARE, OTHER, SELFPAY ==
[2022-10-17 18:25] VITALS: BP 131/59; PULSE 73; RESP 16; TEMP 37.1; O2SAT 98; BMI 18.8
--- NOTE | 2022-10-17 19:23 | ED.WOUNDLAC ---
HPI - Wound/Laceration General Chief Complaint: Wound/Laceration Stated Complaint: ulcer, leg pain Time Seen by Provider: 10/17/22 19:23 Source: patient and old records reviewed Mode of arrival: EMS Limitations: no limitations History of Present Illness HPI narrative: This is an 87-year-old female with history of dyslipidemia, [id number] diabetes, and chronic venous stasis ulcer that has been followed at Wound Care. Patient presents with complaint of increasing redness and pain at the site of her wound and spreading up her leg. She states no fevers or chills. No chest pain or shortness of breath, no numbness but some tingling in her foot. She denies any nausea or vomiting. No constipation. She has some chronic diarrhea. She states she has chronic urinary incontinence which isn't any worse than normal, no dysuria urgency or frequency. Patient states that the redness started in the last 2 or 3 days as well as increased pain. She is always had a little bit of yellow it creamy drainage but states it increased there was quite a bit this morning. She does come to Wound Care regularly and states that it had been healing but that the wound care physician told her it was not progressing quickly anymore. She also has home health care come twice weekly to change her dressing. She states no current antibiotics. She states she is allergic to sulfa. Dr. Mcgarry is her primary care. Related Data Home Medications Medication Instructions Recorded Confirmed metformin 850 mg tablet 850 mg PO BID 05/09/18 09/16/22 Resmed Airsense 10 CPAP #1 ea 03/01/19 09/16/22 omeprazole 40 mg capsule,delayed 40 mg PO DAILY PRN 04/16/19 09/16/22 release acetaminophen 500 mg tablet 1,000 mg PO BID PRN 09/16/22 09/16/22 (Tylenol Extra Strength) vibegron 75 mg tablet (Gemtesa) 75 mg PO DAILY 09/16/22 09/16/22 Previous Rx's Medication Instructions Recorded furosemide 20 mg tablet 40 mg PO DAILY #180 tabs 08/07/19 potassium chloride 10 mEq 10 meq PO DAILY #90 tabs 06/19/20 tablet,extended release(part/cryst) sertraline 50 mg tablet (Zoloft) 150 mg PO QDAY #270 tabs 09/22/20 adhesive bandage 2 X 3 3/4 #20 ea 11/04/22 (Telfa) honey-hydrocolloid dressing 2 X #10 ea 08/20/22 2 (MediHoney (hydrocolloid-honey)) mupirocin 2 % topical ointment 1 applic topical BID wound #22 08/20/22 grams atorvastatin 40 mg tablet 40 mg PO BEDTIME #90 tabs 09/16/22 clindamycin HCl 300 mg capsule 300 mg PO QID #40 caps 10/17/22 tramadol 50 mg tablet 50 mg PO Q6H PRN pain #10 tabs 10/17/22 Allergies Allergy/AdvReac Type Severity Reaction Status Date / Time erythromycin base Allergy Mild Verified 09/16/22 11:36 [ERYTHROMYCIN BASE] ciprofloxacin [CIPROFLOXACIN] Allergy Unknown Verified 09/16/22 11:36 Sulfa (Sulfonamide Allergy Unknown Verified 09/16/22 11:36 Antibiotics) [SULFA (SULFONAMIDE ANTIBIOTICS)] Review of Systems Review of Systems ROS Unobtainable: All systems reviewed & are unremarkable except as noted in HPI and below Patient History Medical History Abnormal gait (03/11/17) Ankle pain (2011) Controlled type 2 diabetes mellitus without complication (2012) COVID-19 (~07/2022) Depression (2004) Fractures (2004) History of fracture of humerus (03/11/17) History of kidney stones Hyperlipidemia (06/04/14) Idiopathic hypersomnia Impairment of balance (03/11/17) Kidney stones (1994) Malignant neoplasm of breast (2010) Obstructive sleep apnea of adult Osteoporosis Scoliosis (1936) Urinary incontinence (2011) Surgical History History of gynecologic surgery (1992) Status post breast lumpectomy Status post hysterectomy (1986) Family History Father Atherosclerosis Mother No problems noted. Social History marital status: details: loi Schaeffer household members: spouse lives independently: Yes caregiver/support person: No housing: house Smoking Status: Former smoker alcohol intake: current substance use type: does not use Smoking Status: Former smoker alcohol intake frequency: 0-2 drinks per day Alcohol type: wine Substance Use Type: does not use Exam Narrative Exam Narrative: GENERAL: Alert and oriented x three, well-nourished elderly female in mild distress. HEENT: Head normocephalic, atraumatic, EOMI, pupils reactive, face symmetric, moist mucous membranes NECK: Supple, full range of motion CARDIOVASCULAR: Regular rate and rhythm without murmurs, rubs or gallops. RESPIRATORY: Breath sounds equal bilaterally, no wheezes rales or rhonchi. ABDOMEN: Soft, nontender. Normoactive bowel sounds all 4 quadrants. No guarding or rebound, rigidity, no mass : No CVA tenderness EXTREMITIES: Normal range of motion, no clubbing. Neurovascularly intact. Patient has a wound on the left calf that is approximately a cm and half in size, there is erythema tracking about 5 cm inferiorly at about 4 cm superiorly it is not circumferential. There is some mild edema. Area is tender. I am not a will to express any purulent fluid currently. Culture was obtained. NEUROLOGICAL: Cranial nerves II through XII grossly intact. Moving all extremities SKIN: Warm, dry, no petechiae, no rashes or lesions, no changes noted other than above. Initial Vital Signs Initial Vital Signs: Vital Signs Temperature 98.8 F 10/17/22 18:25 Pulse Rate 73 10/17/22 18:25 Respiratory Rate 16 10/17/22 18:25 Blood Pressure 131/59 L 10/17/22 18:25 Pulse Oximetry 98 10/17/22 18:25 Oxygen Delivery Method 10/17/22 18:25 Course Orders Ordered: ED Orders 10/17/22 19:50 CBC Auto Diff [Complete Blood Count AUTO DIFF] Stat CMP [Comprehensive Metabolic Panel] Stat Lactate (Lactic Acid) Stat Lipase Stat Procalcitonin Stat Wound Culture and Gram Stain Stat 10/17/22 20:10 COVID19 -Nasal RAPID/Pre-Proc Stat 10/17/22 20:30 Blood Culture Stat Discontinued Medications Clindamycin Phosphate (Cleocin) 900 mg in 50 mls @ 50 mls/hr IV NOW ONE Stop: 10/17/22 20:39 Last Infusion: 10/17/22 21:40 Dose: 0 mls/hr Documented By: Admin: 10/17/22 20:37 Dose: 50 mls/hr Documented By: JADA Tramadol HCl (Tramadol 50 Mg Tablet) 50 mg PO NOW ONE Stop: 10/17/22 20:37 Last Admin: 10/17/22 20:43 Dose: 50 mg Documented By: DAVID Reevaluation(s) Reevaluation #1: On recheck patient would like to return home she is open to trying a course of oral antibiotics we discussed she needs to return if failing. She has follow-up with wound care and has home health coming twice weekly to check her leg. We discussed return precautions. Patient feels comfortable with this plan no signs of sepsis Time: 21:45 Vital Signs Vital signs: Vital Signs - 8 hr 10/17/22 18:25 Temperature 98.8 F Pulse Rate 73 Respiratory Rate 16 Blood Pressure 131/59 L Pulse Oximetry 98 Oxygen Delivery Method Room Air MDM - Wound/Laceration Lab Data Result diagrams: 10/17/22 19:50 10/17/22 19:50 Labs: Lab Results 10/17/22 10/17/22 10/17/22 Range/Units 19:50 19:50 19:50 WBC 11.0 (4.5-11.0) X10^3/uL RBC 3.97 L (4.0-5.2) X10^6/uL Hgb 12.3 (12.0-16.0) g/dL Hct 36.8 (36-46) % MCV 92.6 (80-100) fL MCH 31.1 (26-34) PG MCHC 33.5 (30-36) % RDW 13.1 (11.6-14.8) % Plt Count 282 (150-400) X10^3/uL Neut % (Auto) 73.2 (50-75) % Lymph % (Auto) 15.1 L (25-40) % [place] % (Auto) 8.6 (3-14) % Eos % (Auto) 2.5 (2-4) % Baso % (Auto) 0.6 (0-2) % Neut # (Auto) 8000 H (1982-5393) /uL Lymph # (Auto) 1700 (4856-0769) /uL [place] # (Auto) 900 (0-900) /uL Eos # (Auto) 300 (0-450) /uL Baso # (Auto) 100 (0-100) /uL Sodium 137 (137-145) mmol/L Potassium 3.9 (3.4-5.1) mmol/L Chloride 102 (98-107) mmol/L Carbon Dioxide 27 (22-32) mmol/L BUN 14 (7-17) mg/dL Creatinine 0.41 L (0.52-1.04) mg/dL Estimated GFR > 60 (>60) mL/min BUN/Creatinine Ratio 34.1 H (6-22) Glucose 156 H (80-110) mg/dL Lactate 1.1 (0.7-2.1) mmol/L Calcium 9.2 (8.4-10.2) mg/dL Total Bilirubin 0.5 (0.2-1.3) mg/dL AST 19 (14-36) IU/L ALT 18 (<35) IU/L Alkaline Phosphatase 123 (38-126) U/L Total Protein 7.9 (6.3-8.2) g/dL Albumin 4.2 (3.5-5.0) g/dL Globulin 3.7 (1.7-4.1) g/dL Albumin/Globulin Ratio 1.1 (1.0-2.8) Lipase 80 (23-300) U/L Procalcitonin (<0.5) ng/mL SARS-CoV-2 (PCR) (Negative) 10/17/22 10/17/22 Range/Units 19:50 20:10 WBC (4.5-11.0) X10^3/uL RBC (4.0-5.2) X10^6/uL Hgb (12.0-16.0) g/dL Hct (36-46) % MCV (80-100) fL MCH (26-34) PG MCHC (30-36) % RDW (11.6-14.8) % Plt Count (150-400) X10^3/uL Neut % (Auto) (50-75) % Lymph % (Auto) (25-40) % [place] % (Auto) (3-14) % Eos % (Auto) (2-4) % Baso % (Auto) (0-2) % Neut # (Auto) (7146-2318) /uL Lymph # (Auto) (0969-2233) /uL [place] # (Auto) (0-900) /uL Eos # (Auto) (0-450) /uL Baso # (Auto) (0-100) /uL Sodium (137-145) mmol/L Potassium (3.4-5.1) mmol/L Chloride (98-107) mmol/L Carbon Dioxide (22-32) mmol/L BUN (7-17) mg/dL Creatinine (0.52-1.04) mg/dL Estimated GFR (>60) mL/min BUN/Creatinine Ratio (6-22) Glucose (80-110) mg/dL Lactate (0.7-2.1) mmol/L Calcium (8.4-10.2) mg/dL Total Bilirubin (0.2-1.3) mg/dL AST (14-36) IU/L ALT (<35) IU/L Alkaline Phosphatase (38-126) U/L Total Protein (6.3-8.2) g/dL Albumin (3.5-5.0) g/dL Globulin (1.7-4.1) g/dL Albumin/Globulin Ratio (1.0-2.8) Lipase (23-300) U/L Procalcitonin 0.05 (<0.5) ng/mL SARS-CoV-2 (PCR) Negative (Negative) MDM Narrative Medical decision making narrative: This is an 87-year-old female who presents with chronic wound of her left lower extremity which appears to have developed infection. Wound culture was obtained, labs overall are reassuring with no elevation in white count, negative procalcitonin, negative lactate, cultures are pending or blood in scan, normal renal function and electrolytes with a glucose of 156. she does not appear septic she does have a cellulitis, I am not able to express more fluid or purulent fluid at this time. Started on antibiotics given oral prescription and some short course of pain medication she states she is taken in the past and has been very helpful. Patient and I discussed observation versus return home and she would like to return home on oral antibiotics, we discussed if she fails to return. Patient does have follow-up with wound care as well as home health care coming twice weekly to dress her wounds. Wounds were redressed today. Discharge Plan Departure Patient Disposition: Home Clinical Impression: Infected wound, Cellulitis of left leg Activity Restrictions/Additional Instructions: Please follow-up with Dr. Mcgarry and/or your wound care for recheck of your leg this week. Call tomorrow morning to set up an appointment. Continue with your current wound care with your leg. You appear to be developing an infection, take antibiotics until completely gone. You may take pain medication 1 tablet every 6 hours as needed. Prescription sent to [facility] in [place]. Please return for fevers, if redness is spreading, increasing pain, increasing drainage, new numbness, weakness or other new or concerning changes. Prescriptions: New clindamycin HCl 300 mg capsule 300 mg PO QID Qty: 40 0RF tramadol 50 mg tablet 50 mg PO Q6H PRN (Reason: pain) Qty: 10 0RF No Action furosemide 20 mg tablet 40 mg PO DAILY Qty: 180 4RF potassium chloride 10 mEq tablet,ER particles/crystals 10 meq PO DAILY Qty: 90 0RF Rx Instructions: PT DUE FOR FOLLOW UP WITH PCP PRIOR TO FUTURE FILLS. PLEASE CALL TO SCHEDULE APPT. 06/19/20 sertraline [Zoloft] 50 mg tablet 150 mg PO QDAY Qty: 270 0RF Rx Instructions: PT DUE FOR FOLLOW UP W/PCP PRIOR TO FUTURE FILLS. PLEASE CALL CLINIC TO SCHED. APPT. THANKS 09/22/20 metformin 850 mg tablet 850 mg PO BID omeprazole 40 mg capsule,delayed release(DR/EC) 40 mg PO DAILY PRN Gemtesa 75 mg tablet 75 mg PO DAILY acetaminophen [Tylenol Extra Strength] 500 mg tablet 1,000 mg PO BID PRN atorvastatin 40 mg tablet 40 mg PO BEDTIME Qty: 90 1RF mupirocin 2 % ointment 1 applic topical BID Qty: 22 0RF (DME) MediHoney (hydrocolloid-honey) 2 X 2 bandage See Rx Instructions .Route Qty: 10 0RF Rx Instructions: As directed (DME) Telfa 2 X 3 3/4 bandage See Rx Instructions .Route Qty: 20 0RF Rx Instructions: As directed (DME) Resmed Airsense 10 CPAP Qty: 1 Dose Instruction: As directed Label Comments: Pressure: 8-14 cmH2O DME: [facility] Rx Instructions: As directed Referrals: Maximus Mcgarry MD [Primary Care Provider] -
[2022-10-17 20:14] LABS: Add Manual Diff / Slide Review NO; Basophils Absolute Auto 100 /uL (0-100); Basophils Percent Auto 0.6 % (0-2); Eosinophils Absolute Auto 300 /uL (0-450); Eosinophils Percent Auto 2.5 % (2-4); Hematocrit 36.8 % (36-46); Hemoglobin 12.3 g/dL (12.0-16.0); Lymphocytes Absolute Auto 1700 /uL (1100-4500); Lymphocytes Percent Auto 15.1 % (25-40); Mean Corpuscular HGB Conc 33.5 % (30-36); Mean Corpuscular Hemoglobin 31.1 PG (26-34); Mean Corpuscular Volume 92.6 fL (80-100); Monocytes Absolute Auto 900 /uL (0-900); Monocytes Percent Auto 8.6 % (3-14); Neutrophils Absolute Auto 8000 /uL (1500-7000); Neutrophils Percent Auto 73.2 % (50-75); Platelet Count 282 X10^3/uL (150-400); Red Blood Cell Count 3.97 X10^6/uL (4.0-5.2); Red Cell Distribution Width 13.1 % (11.6-14.8)
[2022-10-17] MEDS: CLINDAMYCIN 900 MG/50 ML PIGGYBACK 50 MG IV (20:37)
[2022-10-17 20:40] LABS: Lactate (Lactic Acid) 1.1 mmol/L (0.7-2.1)
[2022-10-17 20:41] LABS: Alanine Aminotransferase 18 IU/L (<35); Albumin 4.2 g/dL (3.5-5.0); Albumin Globulin Ratio 1.1 (1.0-2.8); Alkaline Phosphatase 123 U/L (38-126); Aspartate Aminotransferase 19 IU/L (14-36); BUN Creatinine Ratio 34.1 (6-22); Bilirubin Total 0.5 mg/dL (0.2-1.3); Blood Urea Nitrogen 14 mg/dL (7-17); Calcium 9.2 mg/dL (8.4-10.2); Carbon Dioxide 27 mmol/L (22-32); Chloride 102 mmol/L (98-107); Estimated Glomerular Filt Rate > 60 mL/min (>60); Globulin 3.7 g/dL (1.7-4.1); Glucose 156 mg/dL (80-110); HEMOLYSIS < 15 (0-50); Lipase 80 U/L (23-300); Potassium 3.9 mmol/L (3.4-5.1); Sodium 137 mmol/L (137-145); Total Protein 7.9 g/dL (6.3-8.2)
[2022-10-17] MEDS: TRAMADOL 50 MG TABLET PO (20:43)
[2022-10-17 20:57] LABS: Procalcitonin 0.05 ng/mL (<0.5)
[2022-10-17 21:56] LABS: COVID19 -Nasal RAPID Negative (Negative)
== END 2022-10-17 22:07 | disposition home or self-care (01) ==
PROVIDERS: Emergency Provider Emergency Medicine; PCP Internal Medicine
DX: L03.116 Cellulitis of left lower limb (principal); Z20.822 Contact with and (suspected) exposure to COVID-19
CPT/HCPCS: 80053; 83605; 83690; 84145; 85025; 87040; 87070; 87075; 87077; 87147; 87186; 87205; 87635; 96365; 99284; C9803

== ENCOUNTER → 2022-10-28 13:05 | Outpatient (CLI) | payer MEDICARE, OTHER, SELFPAY | PROVIDERS: PCP Internal Medicine; Referring Provider Nurse Practitioner Critical Care Medicine; Visit Provider Surgery | DX: I87.313 Chronic venous hypertension (idiopathic) with ulcer of bilateral lower extremity (principal); E11.622 Type 2 diabetes mellitus with other skin ulcer; L97.822 Non-pressure chronic ulcer of other part of left lower leg with fat layer exposed; L97.312 Non-pressure chronic ulcer of right ankle with fat layer exposed | CPT/HCPCS: 97597; 99212; 99213 ==

== ENCOUNTER → 2022-11-01 10:00 | Outpatient (CLI) | payer MEDICARE, OTHER, SELFPAY | PROVIDERS: PCP Internal Medicine; Referring Provider Internal Medicine; Visit Provider Surgery | DX: I87.313 Chronic venous hypertension (idiopathic) with ulcer of bilateral lower extremity (principal); L97.822 Non-pressure chronic ulcer of other part of left lower leg with fat layer exposed; L97.312 Non-pressure chronic ulcer of right ankle with fat layer exposed; R60.0 Localized edema; L53.9 Erythematous condition, unspecified | CPT/HCPCS: 11042; 87070; 87075; 87077; 87147; 87186; 87205; 97597; 99213 ==

== ENCOUNTER → 2022-11-05 13:34 | Outpatient (CLI) | payer MEDICARE, OTHER, SELFPAY | PROVIDERS: PCP Internal Medicine; Referring Provider Internal Medicine; Visit Provider Nurse Practitioner Family | DX: I87.2 Venous insufficiency (chronic) (peripheral) (principal); L97.822 Non-pressure chronic ulcer of other part of left lower leg with fat layer exposed; L97.312 Non-pressure chronic ulcer of right ankle with fat layer exposed; R60.0 Localized edema | CPT/HCPCS: 99213 ==

== ENCOUNTER → 2022-11-24 09:44 | Outpatient (CLI) | payer MEDICARE, OTHER, SELFPAY | PROVIDERS: PCP Internal Medicine; Referring Provider Nurse Practitioner Critical Care Medicine; Visit Provider Surgery | DX: I87.2 Venous insufficiency (chronic) (peripheral) (principal); L97.822 Non-pressure chronic ulcer of other part of left lower leg with fat layer exposed; L97.312 Non-pressure chronic ulcer of right ankle with fat layer exposed; L03.116 Cellulitis of left lower limb | CPT/HCPCS: 11042; 99213 ==

== ENCOUNTER → 2022-12-01 10:18 | Outpatient (CLI) | payer MEDICARE, OTHER, SELFPAY | PROVIDERS: PCP Internal Medicine; Referring Provider Internal Medicine; Visit Provider Surgery | DX: I87.2 Venous insufficiency (chronic) (peripheral) (principal); L97.822 Non-pressure chronic ulcer of other part of left lower leg with fat layer exposed; L97.312 Non-pressure chronic ulcer of right ankle with fat layer exposed | CPT/HCPCS: 11042; 87070; 87075; 87077; 87147; 87186; 87205; 97597; 99213 ==

== ENCOUNTER → 2022-12-08 14:13 | Outpatient (CLI) | payer MEDICARE, OTHER, SELFPAY | PROVIDERS: PCP Internal Medicine; Referring Provider Nurse Practitioner Critical Care Medicine; Visit Provider Surgery | DX: I87.2 Venous insufficiency (chronic) (peripheral) (principal); L97.812 Non-pressure chronic ulcer of other part of right lower leg with fat layer exposed; L97.312 Non-pressure chronic ulcer of right ankle with fat layer exposed | CPT/HCPCS: 11042 ==

== ENCOUNTER → 2022-12-15 11:31 | Outpatient (CLI) | payer MEDICARE, OTHER, SELFPAY | PROVIDERS: PCP Internal Medicine; Referring Provider Nurse Practitioner Critical Care Medicine; Visit Provider Surgery | DX: I87.313 Chronic venous hypertension (idiopathic) with ulcer of bilateral lower extremity (principal); L97.822 Non-pressure chronic ulcer of other part of left lower leg with fat layer exposed; L97.312 Non-pressure chronic ulcer of right ankle with fat layer exposed; L03.116 Cellulitis of left lower limb | CPT/HCPCS: 11042; 15271; Q4195 ==

== ENCOUNTER → 2022-12-16 15:22 | Outpatient (CLI) | payer MEDICARE, OTHER, SELFPAY ==
[2022-12-16 16:13] LABS: Blood Urea Nitrogen 20 mg/dL (7-17); Calcium 9.9 mg/dL (8.4-10.2); Carbon Dioxide 29 mmol/L (22-32); Chloride 100 mmol/L (98-107); Estimated Glomerular Filt Rate > 60 mL/min (>60); Glucose 119 mg/dL (80-110); HEMOLYSIS < 15 (0-50); Potassium 4.2 mmol/L (3.4-5.1); Sodium 138 mmol/L (137-145)
[2022-12-16 16:17] LABS: Hemoglobin A1C% w Est Avg Glu 7.2 % (4.0-6.0)
== END ==
PROVIDERS: PCP Internal Medicine; Referring Provider Internal Medicine; Visit Provider Internal Medicine
DX: E11.9 Type 2 diabetes mellitus without complications (principal); E78.5 Hyperlipidemia, unspecified; I87.2 Venous insufficiency (chronic) (peripheral); R60.0 Localized edema
CPT/HCPCS: 36415; 80048; 83036

== ENCOUNTER → 2022-12-29 13:30 | Outpatient (CLI) | payer MEDICARE, OTHER, SELFPAY | PROVIDERS: PCP Internal Medicine; Referring Provider Internal Medicine; Visit Provider Surgery | DX: I87.313 Chronic venous hypertension (idiopathic) with ulcer of bilateral lower extremity (principal); L97.822 Non-pressure chronic ulcer of other part of left lower leg with fat layer exposed; L97.312 Non-pressure chronic ulcer of right ankle with fat layer exposed | CPT/HCPCS: 15271; 99213; Q4196 ==

== ENCOUNTER → 2023-01-05 15:07 | Outpatient (CLI) | payer MEDICARE, OTHER, SELFPAY | PROVIDERS: PCP Internal Medicine; Referring Provider Internal Medicine; Visit Provider Surgery | DX: I87.313 Chronic venous hypertension (idiopathic) with ulcer of bilateral lower extremity (principal); L97.822 Non-pressure chronic ulcer of other part of left lower leg with fat layer exposed; L97.312 Non-pressure chronic ulcer of right ankle with fat layer exposed; L03.116 Cellulitis of left lower limb | CPT/HCPCS: 15271; 99213; Q4196 ==

== ENCOUNTER → 2023-01-12 14:20 | Outpatient (CLI) | payer MEDICARE, OTHER, SELFPAY | PROVIDERS: PCP Internal Medicine; Referring Provider Internal Medicine; Visit Provider Surgery | DX: I87.2 Venous insufficiency (chronic) (peripheral) (principal); L97.822 Non-pressure chronic ulcer of other part of left lower leg with fat layer exposed; L97.312 Non-pressure chronic ulcer of right ankle with fat layer exposed | CPT/HCPCS: 97597; 99213 ==

== ENCOUNTER → 2023-01-19 14:30 | Outpatient (CLI) | payer MEDICARE, OTHER, SELFPAY ==
[2023-01-19 15:21] LABS: Add Manual Diff / Slide Review NO; Basophils Absolute Auto 0 /uL (0-100); Basophils Percent Auto 0.7 % (0-2); Eosinophils Absolute Auto 200 /uL (0-450); Eosinophils Percent Auto 2.5 % (2-4); Hematocrit 34.4 % (36-46); Hemoglobin 11.5 g/dL (12.0-16.0); Lymphocytes Absolute Auto 1800 /uL (1100-4500); Lymphocytes Percent Auto 25.4 % (25-40); Mean Corpuscular HGB Conc 33.5 % (30-36); Mean Corpuscular Hemoglobin 31.1 PG (26-34); Mean Corpuscular Volume 92.8 fL (80-100); Monocytes Absolute Auto 700 /uL (0-900); Monocytes Percent Auto 9.5 % (3-14); Neutrophils Absolute Auto 4400 /uL (1500-7000); Neutrophils Percent Auto 61.9 % (50-75); Platelet Count 261 X10^3/uL (150-400); Red Blood Cell Count 3.71 X10^6/uL (4.0-5.2); Red Cell Distribution Width 15.1 % (11.6-14.8); White Blood Cell Count 7.1 X10^3/uL (4.5-11.0)
[2023-01-19 15:42] LABS: Alanine Aminotransferase 20 IU/L (<35); Albumin 4.1 g/dL (3.5-5.0); Albumin Globulin Ratio 1.3 (1.0-2.8); Alkaline Phosphatase 67 U/L (38-126); Aspartate Aminotransferase 25 IU/L (14-36); BUN Creatinine Ratio 48.8 (6-22); Bilirubin Total 0.3 mg/dL (0.2-1.3); Blood Urea Nitrogen 21 mg/dL (7-17); Calcium 9.2 mg/dL (8.4-10.2); Carbon Dioxide 29 mmol/L (22-32); Chloride 102 mmol/L (98-107); Estimated Glomerular Filt Rate > 60 mL/min (>60); Globulin 3.2 g/dL (1.7-4.1); Glucose 138 mg/dL (80-110); HEMOLYSIS 31 (0-50); Potassium 4.1 mmol/L (3.4-5.1); Sodium 138 mmol/L (137-145); Total Protein 7.3 g/dL (6.3-8.2)
[2023-01-19 15:49] LABS: Prealbumin 18.2 mg/dL (17.6-36.0)
== END ==
PROVIDERS: PCP Internal Medicine; Referring Provider Surgery; Visit Provider Surgery
DX: I87.313 Chronic venous hypertension (idiopathic) with ulcer of bilateral lower extremity (principal)
CPT/HCPCS: 36415; 80053; 84134; 85025

== ENCOUNTER → 2023-01-26 14:30 | Outpatient (CLI) | payer MEDICARE, OTHER, SELFPAY | PROVIDERS: PCP Internal Medicine; Referring Provider Internal Medicine; Visit Provider Surgery | DX: I87.2 Venous insufficiency (chronic) (peripheral) (principal); L97.822 Non-pressure chronic ulcer of other part of left lower leg with fat layer exposed; L97.312 Non-pressure chronic ulcer of right ankle with fat layer exposed; L03.116 Cellulitis of left lower limb | CPT/HCPCS: 97597; 99213 ==

== ENCOUNTER → 2023-02-03 14:14 | Outpatient (CLI) | payer MEDICARE, OTHER, SELFPAY | PROVIDERS: PCP Internal Medicine; Referring Provider Internal Medicine; Visit Provider Surgery | DX: I87.2 Venous insufficiency (chronic) (peripheral) (principal); L97.822 Non-pressure chronic ulcer of other part of left lower leg with fat layer exposed; L97.322 Non-pressure chronic ulcer of left ankle with fat layer exposed; L97.312 Non-pressure chronic ulcer of right ankle with fat layer exposed; E11.622 Type 2 diabetes mellitus with other skin ulcer | CPT/HCPCS: 97597 ==

== ENCOUNTER → 2023-02-10 14:12 | Outpatient (CLI) | payer MEDICARE, OTHER, SELFPAY | PROVIDERS: PCP Internal Medicine; Referring Provider Nurse Practitioner Critical Care Medicine; Visit Provider Surgery | DX: I87.2 Venous insufficiency (chronic) (peripheral) (principal); L97.312 Non-pressure chronic ulcer of right ankle with fat layer exposed; L97.322 Non-pressure chronic ulcer of left ankle with fat layer exposed; L97.822 Non-pressure chronic ulcer of other part of left lower leg with fat layer exposed | CPT/HCPCS: 11042; 29581 ==

== ENCOUNTER → 2023-02-17 14:28 | Outpatient (CLI) | payer MEDICARE, OTHER, SELFPAY | PROVIDERS: PCP Internal Medicine; Referring Provider Nurse Practitioner Critical Care Medicine; Visit Provider Surgery | DX: I87.2 Venous insufficiency (chronic) (peripheral) (principal); L97.312 Non-pressure chronic ulcer of right ankle with fat layer exposed; L97.321 Non-pressure chronic ulcer of left ankle limited to breakdown of skin; E11.622 Type 2 diabetes mellitus with other skin ulcer; R60.0 Localized edema | CPT/HCPCS: 29581; 99213 ==

== ENCOUNTER → 2023-02-24 14:21 | Outpatient (CLI) | payer MEDICARE, OTHER, SELFPAY | PROVIDERS: PCP Internal Medicine; Referring Provider Nurse Practitioner Critical Care Medicine; Visit Provider Surgery | DX: E11.622 Type 2 diabetes mellitus with other skin ulcer (principal); L97.322 Non-pressure chronic ulcer of left ankle with fat layer exposed; R60.0 Localized edema | CPT/HCPCS: 29581; 99212; 99213 ==

== ENCOUNTER → 2023-03-04 13:48 | Outpatient (CLI) | payer MEDICARE, OTHER, SELFPAY | PROVIDERS: PCP Internal Medicine; Referring Provider Internal Medicine; Visit Provider Physician Assistant | DX: I87.2 Venous insufficiency (chronic) (peripheral) (principal); R60.0 Localized edema; E11.9 Type 2 diabetes mellitus without complications; Z87.2 Personal history of diseases of the skin and subcutaneous tissue | CPT/HCPCS: 99213 ==

== ENCOUNTER → 2023-03-09 09:55 | Outpatient (CLI) | payer MEDICARE, OTHER, SELFPAY | PROVIDERS: PCP Internal Medicine; Referring Provider Nurse Practitioner Critical Care Medicine; Visit Provider Surgery | DX: L97.312 Non-pressure chronic ulcer of right ankle with fat layer exposed (principal); L97.321 Non-pressure chronic ulcer of left ankle limited to breakdown of skin; L97.221 Non-pressure chronic ulcer of left calf limited to breakdown of skin; I87.2 Venous insufficiency (chronic) (peripheral); R60.0 Localized edema; E11.622 Type 2 diabetes mellitus with other skin ulcer | CPT/HCPCS: 29581; 99213 ==

== ENCOUNTER → 2023-03-16 13:14 | Outpatient (CLI) | payer MEDICARE, OTHER, SELFPAY | PROVIDERS: PCP Internal Medicine; Referring Provider Internal Medicine; Visit Provider Surgery | DX: I87.2 Venous insufficiency (chronic) (peripheral) (principal); E11.622 Type 2 diabetes mellitus with other skin ulcer; L97.311 Non-pressure chronic ulcer of right ankle limited to breakdown of skin; L97.821 Non-pressure chronic ulcer of other part of left lower leg limited to breakdown of skin | CPT/HCPCS: 29581; 99213 ==

== ENCOUNTER → 2023-03-23 14:33 | Outpatient (CLI) | payer MEDICARE, OTHER, SELFPAY | PROVIDERS: PCP Internal Medicine; Referring Provider Nurse Practitioner Critical Care Medicine; Visit Provider Surgery | DX: I87.2 Venous insufficiency (chronic) (peripheral) (principal); L97.821 Non-pressure chronic ulcer of other part of left lower leg limited to breakdown of skin | CPT/HCPCS: 29581; 99213 ==

== ENCOUNTER → 2023-03-30 13:48 | Outpatient (CLI) | payer MEDICARE, OTHER, SELFPAY | PROVIDERS: PCP Internal Medicine; Referring Provider Nurse Practitioner Critical Care Medicine; Visit Provider Surgery | DX: I87.2 Venous insufficiency (chronic) (peripheral) (principal) | CPT/HCPCS: 99213 ==

== ENCOUNTER → 2023-04-06 14:01 | Outpatient (CLI) | payer MEDICARE, OTHER, SELFPAY | PROVIDERS: PCP Internal Medicine; Referring Provider Nurse Practitioner Critical Care Medicine; Visit Provider Surgery | DX: I87.2 Venous insufficiency (chronic) (peripheral) (principal); L97.822 Non-pressure chronic ulcer of other part of left lower leg with fat layer exposed; L97.321 Non-pressure chronic ulcer of left ankle limited to breakdown of skin; L03.116 Cellulitis of left lower limb; E11.628 Type 2 diabetes mellitus with other skin complications | CPT/HCPCS: 87070; 87075; 87077; 87147; 87186; 87205; 97597; 99213 ==

== ENCOUNTER → 2023-04-13 10:45 | Outpatient (CLI) | payer MEDICARE, OTHER, SELFPAY | PROVIDERS: PCP Internal Medicine; Referring Provider Nurse Practitioner Critical Care Medicine; Visit Provider Surgery | DX: I87.2 Venous insufficiency (chronic) (peripheral) (principal) | CPT/HCPCS: 29581; 99213 ==

== ENCOUNTER → 2023-04-21 10:25 | Outpatient (CLI) | payer MEDICARE, OTHER, SELFPAY | PROVIDERS: PCP Internal Medicine; Referring Provider Nurse Practitioner Critical Care Medicine; Visit Provider Surgery | DX: I87.2 Venous insufficiency (chronic) (peripheral) (principal); E11.9 Type 2 diabetes mellitus without complications; Z87.2 Personal history of diseases of the skin and subcutaneous tissue | CPT/HCPCS: 99211; 99213 ==